=== PATIENT | female | born 1990 | race American Indian/Alaskan Native ===

== ENCOUNTER 2016-09-03 14:41 | Emergency (ER) | payer SELFPAY ==
[2016-09-03 15:31] VITALS: BP 121/78
[2016-09-03] MEDS ORDERED: NACL 0.9% 1000 ML 1,000 ML IV ONE (18:07)
--- NOTE | 2016-09-03 18:14 | Emergency Department Report ---
ED General Adult HPI - General Chief complaint: Medical Clearance Stated complaint: HANDS/LEGS GOING NUMB Time Seen by Provider: 09/03/16 17:51 Source: patient Mode of arrival: Ambulatory Limitations: No Limitations - History of Present Illness Initial comments: PT c/o her hands and legs intermittently going numb x 1 month. PT states she will have episodes of numbness daily and states it will last for a few seconds. On some days, she has multiple episodes. 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 PT denies facial numbness or paralysis. PT unsure when her lmp was. PT states it was sometime last year and when she missed her cycle, she took a test and it was negative. PT states she currently has an IUD. PT is laying on her left side with her left arm bent under her head and pt states, "My arm just went numb" Complaint: numbness Onset/Timin -: Gradual, month(s) Location: left, right, upper extremity, lower extremity Severity scale (0 -10): 7 Quality: other (painful numbness ) Consistency: intermittent Improves with: other (at times, repositioning ) Worsens with: other (working ) Associated Symptoms: denies: chest pain, fever/chills, nausea/vomiting Treatments Prior to Arrival: other (drinking ensure and beet juice ) - Related Data Allergies Allergy/AdvReac Type Severity Reaction Status Date / Time No Known Allergies Allergy Unverified 09/03/16 15:32 ED Review of Systems ROS: Stated complaint: HANDS/LEGS GOING NUMB Other details as noted in HPI Comment: All other systems reviewed and negative Constitutional: denies: chills, fever Eyes: denies: vision change ENT: denies: ear pain, throat pain, congestion Respiratory: denies: cough, shortness of breath Cardiovascular: denies: chest pain Endocrine: increased urine. denies: increased thirst Gastrointestinal: nausea. denies: abdominal pain, vomiting Genitourinary: frequency, abnormal menses. denies: dysuria, discharge Musculoskeletal: back pain (at times, she will have an ache ) Neurological: numbness. denies: abnormal gait ED Past Medical Hx - Past Medical History Previous Medical History?: Yes Hx Hypertension: Yes (DURING PREG) - Surgical History Additional Surgical History: C SECTION - Social History Smoking Status: Current Every Day Smoker Substance Use Type: None ED Physical Exam - General Limitations: No Limitations General appearance: alert, in no apparent distress - Head Head exam: Present: atraumatic, normocephalic, normal inspection - Eye Eye exam: Present: normal appearance, PERRL, EOMI. Absent: conjunctival injection - ENT ENT exam: Present: normal exam, normal orophraynx, mucous membranes moist, TM's normal bilaterally, normal external ear exam - Neck Neck exam: Present: normal inspection, full ROM. Absent: tenderness, meningismus - Respiratory Respiratory exam: Present: normal lung sounds bilaterally. Absent: respiratory distress, wheezes - Cardiovascular Cardiovascular Exam: Present: regular rate, normal rhythm, normal heart sounds - GI/Abdominal GI/Abdominal exam: Present: soft. Absent: tenderness - Extremities Exam Extremities exam: Present: normal inspection, full ROM, normal capillary refill. Absent: tenderness, pedal edema, joint swelling, calf tenderness - Back Exam Back exam: Present: normal inspection, full ROM. Absent: tenderness, CVA tenderness (R), CVA tenderness (L), muscle spasm, paraspinal tenderness, vertebral tenderness - Neurological Exam Neurological exam: Present: alert, oriented X3, CN II-XII intact, normal gait - Psychiatric Psychiatric exam: Present: flat affect - Skin Skin exam: Present: warm, dry, intact, normal color ED Course Vital Signs 09/03/16 15:26 Temperature 98.7 F Pulse Rate 97 H Blood Pressure 121/78 - Reevaluation(s) Reevaluation #1: 09/03/16 18:17 PT aware of plan of care. Reevaluation #2: 09/03/16 21:05 PT aware of lab results and plan of care. PT asking if we did an Aids test. PT states she does not think that is what she has but she would like to know. PT aware she will need to follow up with PCP or health department for HIV testing. PT verbalizes understanding. ED Medical Decision Making - Lab Data Result diagrams: 09/03/16 18:25 09/03/16 19:26 Lab Results 09/03/16 09/03/16 09/03/16 Range/Units 18:10 18:10 18:25 WBC 6.9 (4.5-11.0) K/mm3 RBC 4.44 (3.65-5.03) M/mm3 Hgb 12.8 (10.1-14.3) gm/dl Hct 38.9 (30.3-42.9) % MCV 88 (79-97) fl MCH 29 (28-32) pg MCHC 33 (30-34) % RDW 12.9 L (13.2-15.2) % Plt Count 232 (140-440) K/mm3 Lymph % (Auto) 25.5 (13.4-35.0) % Hooker % (Auto) 12.4 H (0.0-7.3) % Eos % (Auto) 8.4 H (0.0-4.3) % Baso % (Auto) 0.5 (0.0-1.8) % Lymph # 1.8 (1.2-5.4) K/mm3 Hooker # 0.9 H (0.0-0.8) K/mm3 Eos # 0.6 H (0.0-0.4) K/mm3 Baso # 0.0 (0.0-0.1) K/mm3 Seg Neutrophils % 53.2 (40.0-70.0) % Seg Neutrophils # 3.7 (1.8-7.7) K/mm3 Sodium Potassium Chloride Carbon Dioxide Anion Gap BUN Creatinine Estimated GFR BUN/Creatinine Ratio Glucose Calcium Total Bilirubin AST ALT Alkaline Phosphatase Total Protein Albumin Albumin/Globulin Ratio TSH (0.270-4.200) mlU/mL Urine Color Yellow (Yellow) Urine Turbidity Slightly-cloudy (Clear) Urine pH 5.0 (5.0-7.0) Ur Specific [place] 1.013 (1.003-1.030) Urine Protein <15 mg/dl (Negative) mg/dL Urine Glucose (UA) Neg (Negative) mg/dL Urine Ketones Neg (Negative) mg/dL Urine Blood Sm (Negative) Urine Nitrite Neg (Negative) Urine Bilirubin Neg (Negative) Urine Urobilinogen 4.0 (<2.0) mg/dL Ur Leukocyte Esterase Tr (Negative) Urine WBC (Auto) 9.0 H (0.0-6.0) /HPF Urine RBC (Auto) 4.0 (0.0-6.0) /HPF U Epithel Cells (Auto) 14.0 H (0-13.0) /HPF Urine Bacteria (Auto) 1+ (Negative) /HPF Urine Mucus Few /HPF Urine HCG, Qual Negative (Negative) Urine Opiates Screen Presumptive negative Urine Methadone Screen Presumptive negative Ur Barbiturates Screen Presumptive negative Ur Phencyclidine Scrn Presumptive negative Ur Amphetamines Screen Presumptive negative U Benzodiazepines Scrn Presumptive negative Urine Cocaine Screen Presumptive negative U Marijuana (THC) Screen Presumptive positive Drugs of Abuse Note Disclamer 09/03/16 09/03/16 09/03/16 Range/Units 18:25 18:25 19:26 WBC (4.5-11.0) K/mm3 RBC (3.65-5.03) M/mm3 Hgb (10.1-14.3) gm/dl Hct (30.3-42.9) % MCV (79-97) fl MCH (28-32) pg MCHC (30-34) % RDW (13.2-15.2) % Plt Count (140-440) K/mm3 Lymph % (Auto) (13.4-35.0) % Hooker % (Auto) (0.0-7.3) % Eos % (Auto) (0.0-4.3) % Baso % (Auto) (0.0-1.8) % Lymph # (1.2-5.4) K/mm3 Hooker # (0.0-0.8) K/mm3 Eos # (0.0-0.4) K/mm3 Baso # (0.0-0.1) K/mm3 Seg Neutrophils % (40.0-70.0) % Seg Neutrophils # (1.8-7.7) K/mm3 Sodium TNR 139 Potassium TNR 3.5 L Chloride TNR 106.3 Carbon Dioxide TNR 21 L Anion Gap TNR 15 BUN TNR 9 Creatinine TNR 0.6 L Estimated GFR TNR > 60 BUN/Creatinine Ratio TNR 15.00 Glucose TNR 89 Calcium TNR 8.4 Total Bilirubin TNR 0.2 AST TNR 19 ALT TNR 21 Alkaline Phosphatase TNR 69 Total Protein TNR 6.4 Albumin TNR 3.5 L Albumin/Globulin Ratio TNR 1.2 TSH 1.010 (0.270-4.200) mlU/mL Urine Color (Yellow) Urine Turbidity (Clear) Urine pH (5.0-7.0) Ur Specific [place] (1.003-1.030) Urine Protein (Negative) mg/dL Urine Glucose (UA) (Negative) mg/dL Urine Ketones (Negative) mg/dL Urine Blood (Negative) Urine Nitrite (Negative) Urine Bilirubin (Negative) Urine Urobilinogen (<2.0) mg/dL Ur Leukocyte Esterase (Negative) Urine WBC (Auto) (0.0-6.0) /HPF Urine RBC (Auto) (0.0-6.0) /HPF U Epithel Cells (Auto) (0-13.0) /HPF Urine Bacteria (Auto) (Negative) /HPF Urine Mucus /HPF Urine HCG, Qual (Negative) Urine Opiates Screen Urine Methadone Screen Ur Barbiturates Screen Ur Phencyclidine Scrn Ur Amphetamines Screen U Benzodiazepines Scrn Urine Cocaine Screen U Marijuana (THC) Screen Drugs of Abuse Note - Differential Diagnosis hypothroidism, uti, , new onset dm Critical care attestation.: If time is entered above; I have spent that time in minutes in the direct care of this critically ill patient, excluding procedure time. ED Disposition Clinical Impression: Numbness and tingling in both hands, Numbness and tingling of both legs, Hypokalemia, Marijuana use Disposition: DISCHARGED TO HOME OR SELFCARE Is pt being admited?: No Does the pt Need Aspirin: No Condition: Stable Instructions: Hypokalemia (ED), Paresthesia (ED) Referrals: PRIMARY CARE, [Primary Care Provider] - 3-5 Days FRAN WEATHERS MD [Staff Physician] - 3-5 Days [facility] [Outside] - 3-5 Days [facility] [Outside] - 3-5 Days [facility] [Outside] - 3-5 Days Forms: Work/School Release Form(ED) Time of Disposition: 21:09
[2016-09-03 18:32] LABS: Urine Drugs of Abuse Note Disclamer
[2016-09-03 18:45] LABS: Basophils % (Auto) 0.5 % (0.0-1.8); Eosinophils % (Auto) 8.4 % (0.0-4.3); Hematocrit 38.9 % (30.3-42.9); Hemoglobin 12.8 gm/dl (10.1-14.3); Mean Corpuscular HGB Conc 33 % (30-34); Mean Corpuscular Hemoglobin 29 pg (28-32); Mean Corpuscular Volume 88 fl (79-97); Platelet Count 232 K/mm3 (140-440); Red Blood Count 4.44 M/mm3 (3.65-5.03); Red Cell Distribution Width 12.9 % (13.2-15.2); White Blood Count 6.9 K/mm3 (4.5-11.0)
[2016-09-03 18:48] LABS: Bacteria,Urine 1+ /HPF (Negative); Bilirubin,Urine NEG (Negative); Blood,Urine SM (Negative); Ketones,Urine NEG (Negative); Leukocyte Esterase,Urine TR (Negative); Mucus,Urine FEW /HPF; Nitrite,Urine NEG (Negative); Protein,Urine <15 mg/dL mg/dL (Negative)
[2016-09-03 19:21] LABS: Chloride TNR mmol/L (98-107); Potassium TNR mmol/L (3.6-5.0); Sodium TNR mmol/L (137-145)
[2016-09-03 19:22] LABS: Anion Gap TNR mmol/L; BUN/Creatinine Ratio TNR; Blood Urea Nitrogen TNR mg/dL (7-17); Carbon Dioxide TNR mmol/L (22-30); Glucose TNR mg/dL (65-100)
[2016-09-03 19:23] LABS: Alanine Aminotransferase TNR units/L (7-56); Albumin TNR g/dL (3.9-5); Albumin/Globulin Ratio TNR %; Alkaline Phosphatase TNR units/L (35-129); Bilirubin,Total TNR mg/dL (0.1-1.2); Calcium TNR mg/dL (8.4-10.2); Total Protein TNR g/dL (6.3-8.2)
[2016-09-03 20:02] LABS: Alanine Aminotransferase 21 units/L (7-56); Albumin 3.5 g/dL (3.9-5); Albumin/Globulin Ratio 1.2 %; Alkaline Phosphatase 69 units/L (35-129); Anion Gap 15 mmol/L; Bilirubin,Total 0.2 mg/dL (0.1-1.2); Blood Urea Nitrogen 9 mg/dL (7-17); Calcium 8.4 mg/dL (8.4-10.2); Carbon Dioxide 21 mmol/L (22-30); Chloride 106.3 mmol/L (98-107); Glucose 89 mg/dL (65-100); Potassium 3.5 mmol/L (3.6-5.0); Sodium 139 mmol/L (137-145); Total Protein 6.4 g/dL (6.3-8.2)
[2016-09-03] MEDS ORDERED: K-DUR PO ONE (21:04)
== END 2016-09-03 22:50 | disposition home or self-care (01) ==
LOC: ED 14:41
DX: R20.0 Anesthesia of skin (principal); R20.2 Paresthesia of skin; E87.6 Hypokalemia; F12.10 Cannabis abuse, uncomplicated; I10 Essential (primary) hypertension; F17.200 Nicotine dependence, unspecified, uncomplicated
CPT/HCPCS: 36415; 80053; 80307; 81001; 81025; 84443; 85025; 96360; 99283; J7030

== ENCOUNTER 2017-05-12 12:33 | Emergency (ER) | payer OTHER ==
[2017-05-12 12:41] VITALS: BP 120/90
--- NOTE | 2017-05-12 13:10 | Emergency Department Report ---
Chief Complaint: Abdominal Pain Stated Complaint: ABDOMINAL PAIN Time Seen by Provider: 05/12/17 12:53 - HPI History of Present Illness: Patient is a 26-year-old [place] female who states that this more proximally a.m. she started having nausea vomiting diarrhea. Patient has vomited numerous times. Patient has some mild stomach cramping. Denies fever. Her daughter has the same. - ROS Review of Systems: Review of systems negative except for those L mismatch. - Exam Vital Signs: Vital Signs 05/12/17 12:37 Temperature 97.8 F Pulse Rate 71 Respiratory 18 Rate Blood Pressure 120/90 O2 Sat by Pulse 100 Oximetry Physical Exam: Focused physical exam: Patient is alert and oriented 3 in no acute distress. Heart tones are normal lungs clear to auscultation abdomen is soft and nontender. MSE screening note: Focused history and physical exam performed. Due to findings the following was ordered: ED Medical Decision Making - Medical Decision Making Patient given Zofran. Patient does not appear to be dehydrated at this time. Patient is no acute distress. Patient be discharged home ED Disposition for MSE Clinical Impression: Viral gastroenteritis Disposition: DC-01 TO HOME OR SELFCARE Is pt being admited?: No Does the pt Need Aspirin: No Condition: Fair Instructions: Gastroenteritis (ED) Prescriptions: Dicyclomine [Bentyl] 10 mg PO QID #10 capsule Diphenoxylate/Atropine [Lomotil] 1 tab PO Q4H PRN #7 tablet PRN Reason: Diarrhea Famotidine [Pepcid] 20 mg PO BID #14 tablet Ondansetron [Zofran Odt] 4 mg PO TID #10 tab.[email or web address] Referrals: WANDA TREVINO MD [Primary Care Provider] - 3-5 Days
[2017-05-12] MEDS ORDERED: NACL 0.9% 1000 ML 1,000 ML IV ONE (13:26)
[2017-05-12] MEDS ORDERED: TORADOL IV ONE (13:26)
[2017-05-12] MEDS ORDERED: ZOFRAN IV ONE (13:26)
[2017-05-12] MEDS ORDERED: BENTYL IM ONE (13:27)
[2017-05-12 13:51] LABS: Hematocrit 39.4 % (30.3-42.9); Hemoglobin 12.8 gm/dl (10.1-14.3); Mean Corpuscular HGB Conc 32 % (30-34); Mean Corpuscular Hemoglobin 27 pg (28-32); Mean Corpuscular Volume 84 fl (79-97); Platelet Count 262 K/mm3 (140-440); Red Blood Count 4.69 M/mm3 (3.65-5.03); Red Cell Distribution Width 13.3 % (13.2-15.2)
[2017-05-12 14:02] LABS: Anion Gap 17 mmol/L; BUN/Creatinine Ratio 23; Blood Urea Nitrogen 14 mg/dL (7-17); Calcium 9.7 mg/dL (8.4-10.2); Carbon Dioxide 22 mmol/L (22-30); Chloride 103.2 mmol/L (98-107); Glucose 93 mg/dL (65-100); Potassium 4.2 mmol/L (3.6-5.0); Sodium 138 mmol/L (137-145)
[2017-05-12 14:53] LABS: Basophils % (Manual) 0 % (0.0-1.8); Blastocytes % (Manual) 0 %; Diff Status Complete; RBC Morphology Normal
[2017-05-12 15:02] LABS: RBC,Urine < 1.0 /HPF (0.0-6.0)
[2017-05-12 15:08] LABS: Bacteria,Urine 1+ /HPF (Negative); Bilirubin,Urine NEG (Negative); Blood,Urine MOD (Negative); Ketones,Urine NEG (Negative); Leukocyte Esterase,Urine TR (Negative); Mucus,Urine FEW /HPF; Nitrite,Urine NEG (Negative); Protein,Urine <15 mg/dL mg/dL (Negative); Urobilinogen,Urine < 2.0 mg/dL (<2.0)
--- NOTE | 2017-05-12 15:11 | Emergency Department Report ---
ED Abdominal Pain HPI - General Chief Complaint: Abdominal Pain Stated Complaint: ABDOMINAL PAIN Time Seen by Provider: 05/12/17 12:53 Source: patient Mode of arrival: Wheelchair Limitations: No Limitations - History of Present Illness Initial Comments: pt is a a26 y/o aaf who presents for abdominal pain with n/v x 2 days last po intake yesterday pain described as 5/10 generalized aching exacerbated by eating relieved by nothing Complaint: abdominal pain Onset/Timin -: Sudden, days(s) Location: diffuse Radiation: none Migration to: no migration Severity scale (0 -10): 8 Quality: aching Consistency: constant Improves With: nothing Worsens With: eating Associated Symptoms: nausea, vomiting, chills. denies: constipation, dysuria, hematemesis, hematochezia, melena, hematuria, anorexia, syncope - Related Data LMP (females 10-50): 3 weeks Previous Rx's Medication Instructions Recorded Last Taken Type Ondansetron [Zofran TAB] 4 mg PO Q8HR PRN #20 tablet 05/12/17 Unknown Rx Tamsulosin HCl [Flomax] 0.4 mg PO DAILY #30 cap.er.24h 05/12/17 Unknown Rx traMADol [Ultram] 50 mg PO Q8HR PRN #30 tablet 05/12/17 Unknown Rx Allergies Allergy/AdvReac Type Severity Reaction Status Date / Time No Known Allergies Allergy Unverified 09/03/16 15:32 ED Review of Systems ROS: Stated complaint: ABDOMINAL PAIN Other details as noted in HPI Constitutional: denies: chills, fever Eyes: denies: eye pain, eye discharge, vision change ENT: denies: ear pain, throat pain Respiratory: denies: cough, shortness of breath, wheezing Cardiovascular: denies: chest pain, palpitations Endocrine: no symptoms reported Gastrointestinal: abdominal pain, nausea, vomiting. denies: diarrhea, constipation, hematemesis, melena, hematochezia Genitourinary: frequency. denies: urgency, dysuria, hematuria, discharge Musculoskeletal: denies: back pain, joint swelling, arthralgia Skin: denies: rash, lesions Neurological: denies: headache, weakness, paresthesias Psychiatric: denies: anxiety, depression Hematological/Lymphatic: denies: easy bleeding, easy bruising ED Past Medical Hx - Past Medical History Previous Medical History?: Yes Hx Hypertension: Yes (DURING PREG) - Surgical History Past Surgical History?: Yes Additional Surgical History: C SECTION - Social History Smoking Status: Never Smoker Substance Use Type: None - Medications Home Medications: Home Medications Medication Instructions Recorded Confirmed Last Taken Type Ondansetron [Zofran TAB] 4 mg PO Q8HR PRN #20 tablet 05/12/17 Unknown Rx Tamsulosin HCl [Flomax] 0.4 mg PO DAILY #30 cap.er.24h 05/12/17 Unknown Rx traMADol [Ultram] 50 mg PO Q8HR PRN #30 tablet 05/12/17 Unknown Rx ED Physical Exam - General Limitations: No Limitations General appearance: alert, in no apparent distress - Head Head exam: Present: atraumatic, normocephalic - Eye Eye exam: Present: normal appearance - ENT ENT exam: Present: normal exam - Neck Neck exam: Present: normal inspection, full ROM. Absent: lymphadenopathy, thyromegaly - Respiratory Respiratory exam: Present: normal lung sounds bilaterally. Absent: respiratory distress, wheezes, rhonchi, chest wall tenderness - Cardiovascular Cardiovascular Exam: Present: regular rate, normal rhythm, normal heart sounds. Absent: systolic murmur, diastolic murmur, rubs, gallop - GI/Abdominal GI/Abdominal exam: Present: soft, normal bowel sounds. Absent: distended, tenderness, guarding, rebound, rigid, organomegaly, mass, bruit - Rectal Rectal exam: Present: deferred - Extremities Exam Extremities exam: Present: normal inspection - Back Exam Back exam: Present: normal inspection - Neurological Exam Neurological exam: Present: alert, oriented X3, CN II-XII intact, normal gait - Psychiatric Psychiatric exam: Present: normal affect, normal mood - Skin Skin exam: Present: warm, dry, intact, normal color. Absent: rash ED Course Vital Signs 05/12/17 05/12/17 12:37 13:16 Temperature 97.8 F Pulse Rate 71 Respiratory 18 18 Rate Blood Pressure 120/90 O2 Sat by Pulse 100 100 Oximetry ED Medical Decision Making - Lab Data Result diagrams: 05/12/17 13:29 05/12/17 13:29 Laboratory Tests 05/12/17 05/12/17 05/12/17 13:29 13:29 14:50 WBC 13.0 H RBC 4.69 Hgb 12.8 Hct 39.4 MCV 84 MCH 27 L MCHC 32 RDW 13.3 Plt Count 262 Eos % (Auto) Property Management Coordinator Add Manual Diff Complete Total Counted 100 Seg Neuts % (Manual) 75.0 H Band Neutrophils % 0 Lymphocytes % (Manual) 11.0 L Reactive Lymphs % (Man) 0 Monocytes % (Manual) 2.0 Eosinophils % (Manual) 12.0 H Basophils % (Manual) 0 Metamyelocytes % 0 Myelocytes % 0 Promyelocytes % 0 Blast Cells % 0 Nucleated RBC % Not Reportable Seg Neutrophils # Man 9.8 H Band Neutrophils # 0.0 Lymphocytes # (Manual) 1.4 Abs React Lymphs (Man) 0.0 Monocytes # (Manual) 0.3 Eosinophils # (Manual) 1.6 H Basophils # (Manual) 0.0 Metamyelocytes # 0.0 Myelocytes # 0.0 Promyelocytes # 0.0 Blast Cells # 0.0 WBC Morphology Not Reportable Hypersegmented Neuts Not Reportable Hyposegmented Neuts Not Reportable Hypogranular Neuts Not Reportable Smudge Cells Not Reportable Toxic Granulation Not Reportable Toxic Vacuolation Not Reportable Dohle Bodies Not Reportable Pelger-Huet Anomaly Not Reportable Reginaldo Rods Not Reportable Platelet Estimate Appears normal Clumped Platelets Not Reportable Plt Clumps, EDTA Not Reportable Large Platelets Not Reportable Giant Platelets Not Reportable Platelet Satelliting Not Reportable Plt Morphology Comment Not Reportable RBC Morphology Normal Dimorphic RBCs Not Reportable Polychromasia Not Reportable Hypochromasia Not Reportable Poikilocytosis Not Reportable Anisocytosis Not Reportable Microcytosis Not Reportable Macrocytosis Not Reportable Spherocytes Not Reportable Pappenheimer Bodies Not Reportable Sickle Cells Not Reportable Target Cells Not Reportable Tear Drop Cells Not Reportable Ovalocytes Not Reportable Helmet Cells Not Reportable Vega-[place] Bodies Not Reportable [place] Rings Not Reportable Linwood Cells Not Reportable Bite Cells Not Reportable Crenated Cell Not Reportable Elliptocytes Not Reportable Acanthocytes (Spur) Not Reportable Rouleaux Not Reportable Hemoglobin C Crystals Not Reportable Schistocytes Not Reportable Malaria parasites Not Reportable Bebeto Bodies Not Reportable Hem Pathologist Commnt No Sodium 138 Potassium 4.2 Chloride 103.2 Carbon Dioxide 22 Anion Gap 17 BUN 14 Creatinine 0.6 L Estimated GFR > 60 BUN/Creatinine Ratio 23 Glucose 93 Calcium 9.7 Urine Color Yellow Urine Turbidity Clear Urine pH 5.0 Ur Specific Beatrice 1.014 Urine Protein <15 mg/dl Urine Glucose (UA) Neg Urine Ketones Neg Urine Blood Mod Urine Nitrite Neg Ur Reducing Substances Not Reportable Urine Bilirubin Neg Urine Ictotest Not Reportable Urine Urobilinogen < 2.0 Ur Leukocyte Esterase Tr Urine WBC (Auto) 4.0 Urine RBC (Auto) < 1.0 U Epithel Cells (Auto) 3.0 Urine Bacteria (Auto) 1+ Urine Mucus Few Urine HCG, Qual Negative - Radiology Data Radiology results: report reviewed, image reviewed - Medical Decision Making pt is a a26 y/o aaf who presents for abdominal pain with n/v x 2 days last po intake yesterday pain described as 5/10 generalized aching exacerbated by eating relieved by nothing exam: abd round b/s x all 4 qds, no rebound no bruit no fluid shift no signs, labs: CMP: normal CBC: normal UA: normalCT Abd/ pelvis nonobstrucing calculi left, 1518: pt symptoms are improved pain decreased to 2/10 no n/v and tolerating po intake at this time, pt will follow up with urology in 2-3 days , flomax, ultram , pt for d/c to self in stable condition at this time. pt verbalized agreement and understanding of discharge plan. Critical care attestation.: If time is entered above; I have spent that time in minutes in the direct care of this critically ill patient, excluding procedure time. ED Disposition Clinical Impression: Renal stones Disposition: TO HOME OR SELFCARE Is pt being admited?: No Does the pt Need Aspirin: No Condition: Good Prescriptions: Ondansetron [Zofran TAB] 4 mg PO Q8HR PRN #20 tablet PRN Reason: Nausea Tamsulosin HCl [Flomax] 0.4 mg PO DAILY #30 cap.er.24h traMADol [Ultram] 50 mg PO Q8HR PRN #30 tablet PRN Reason: Pain Referrals: WANDA TREVINO MD [Primary Care Provider] - 3-5 Days RANJITH VILLARREAL MD [Staff Physician] - 3-5 Days Forms: Work/School Release Form(ED) Time of Disposition: 18:06
--- NOTE | 2017-05-12 17:40 | Cat Scan Report ---
FINAL REPORT EXAM: CT ABDOMEN PELVIS WO CON HISTORY: Abdominal Pain TECHNIQUE: CT abdomen and pelvis without contrast PRIORS: None. FINDINGS: No acute abnormality identified in the lung bases. No focal abnormality identified within the liver parenchyma. The spleen demonstrates normal size and attenuation. No pancreatic abnormalities seen. There is punctate nonobstructing lower pole left renal calculus. . No ureteral calculus identified. Hypodensity at the lower pole the right kidney most likely reflects a cyst. The adrenal glands are unremarkable. Abdominal aorta is normal in caliber. No pathologically enlarged lymph nodes are identified. No signs of free fluid or free air No evidence of small bowel dilatation. No pericolonic inflammatory changes are observed. The appendix is identified and is unremarkable. An adjustment there is an IUD present within the uterus. Urinary bladder is unremarkable. IMPRESSION: Nonobstructing lower pole left renal calculus IUD within the uterus No acute findings
== END 2017-05-12 18:27 | disposition home or self-care (01) ==
LOC: ED 12:33
DX: N20.0 Calculus of kidney (principal)
CPT/HCPCS: 36415; 74176; 80048; 81001; 81025; 85007; 85025; 96361; 96372; 96374; 96375; 99283; J0500; J1885; J2405; J7030

== ENCOUNTER 2017-12-24 15:10 | Emergency (ER) | payer OTHER ==
[2017-12-24 15:21] VITALS: BP 144/85
--- NOTE | 2017-12-24 17:35 | Emergency Department Report ---
ED Shortness of Breath HPI - General Chief Complaint: Dyspnea/Respdistress Stated Complaint: CHEST PAIN Time Seen by Provider: 12/24/17 17:18 Source: patient Mode of arrival: Ambulatory Limitations: No Limitations - History of Present Illness Initial Comments: Patient is 27 years old female with no significant past medical history. Patient had presented to the ER complaining of cough, productive of greenish sputum associated with shortness of breath and wheezing. Patient denied any fever, chills, nausea or vomiting. MD Complaint: shortness of breath, cough Context: recent URI Associated Symptoms: cough - Related Data Previous Rx's Medication Instructions Recorded Last Taken Type Ondansetron [Zofran TAB] 4 mg PO Q8HR PRN #20 tablet 05/12/17 Unknown Rx Tamsulosin HCl [Flomax] 0.4 mg PO DAILY #30 cap.er.24h 05/12/17 Unknown Rx traMADol [Ultram] 50 mg PO Q8HR PRN #30 tablet 05/12/17 Unknown Rx Allergies Allergy/AdvReac Type Severity Reaction Status Date / Time No Known Allergies Allergy Unverified 09/03/16 15:32 ED Review of Systems ROS: Stated complaint: CHEST PAIN Other details as noted in HPI Comment: All other systems reviewed and negative Constitutional: denies: chills, fever Respiratory: cough, shortness of breath, wheezing. denies: orthopnea, SOB with exertion, SOB at rest Cardiovascular: denies: chest pain, palpitations, dyspnea on exertion, orthopnea Gastrointestinal: denies: abdominal pain, nausea, vomiting, diarrhea, constipation, hematemesis, melena, hematochezia Musculoskeletal: denies: back pain Neurological: denies: headache, weakness, numbness, paresthesias, confusion ED Past Medical Hx - Past Medical History Previous Medical History?: Yes Hx Hypertension: Yes (DURING PREG) Additional medical history: heart murmur - Surgical History Past Surgical History?: Yes Additional Surgical History: C SECTION - Social History Smoking Status: Current Every Day Smoker Substance Use Type: Alcohol, Marijuana - Medications Home Medications: Home Medications Medication Instructions Recorded Confirmed Last Taken Type Ondansetron [Zofran TAB] 4 mg PO Q8HR PRN #20 tablet 05/12/17 Unknown Rx Tamsulosin HCl [Flomax] 0.4 mg PO DAILY #30 cap.er.24h 05/12/17 Unknown Rx traMADol [Ultram] 50 mg PO Q8HR PRN #30 tablet 05/12/17 Unknown Rx ED Physical Exam - General Limitations: No Limitations General appearance: alert, in no apparent distress - Head Head exam: Present: atraumatic, normocephalic, normal inspection - ENT ENT exam: Present: normal exam, normal orophraynx, mucous membranes moist - Neck Neck exam: Present: normal inspection, full ROM. Absent: tenderness, meningismus, lymphadenopathy, thyromegaly - Respiratory Respiratory exam: Present: wheezes, rales. Absent: rhonchi, stridor, chest wall tenderness, accessory muscle use, decreased breath sounds, prolonged expiratory - Cardiovascular Cardiovascular Exam: Present: regular rate, normal rhythm, normal heart sounds - GI/Abdominal GI/Abdominal exam: Present: soft, normal bowel sounds. Absent: distended, tenderness, guarding, rebound, rigid, diminished bowel sounds, organomegaly, mass, bruit, pulsatile mass, hernia - Extremities Exam Extremities exam: Present: normal inspection, full ROM, normal capillary refill. Absent: tenderness, pedal edema, joint swelling, calf tenderness - Back Exam Back exam: Present: normal inspection, full ROM. Absent: CVA tenderness (R), CVA tenderness (L), muscle spasm - Neurological Exam Neurological exam: Present: alert, oriented X3, CN II-XII intact, normal gait, reflexes normal - Skin Skin exam: Present: warm, intact, normal color ED Course Vital Signs 12/24/17 15:14 Temperature 97.7 F Pulse Rate 89 Respiratory 22 Rate Blood Pressure 144/85 O2 Sat by Pulse 98 Oximetry Critical care attestation.: If time is entered above; I have spent that time in minutes in the direct care of this critically ill patient, excluding procedure time. ED Disposition Clinical Impression: Acute bronchitis Disposition: DC-01 TO HOME OR SELFCARE Is pt being admited?: No Condition: Stable Instructions: Acute Bronchitis (ED) Referrals: PRIMARY CARE, [Primary Care Provider] - 3-5 Days
== END 2017-12-24 17:47 | disposition home or self-care (01) ==
LOC: ED 15:10
DX: J20.9 Acute bronchitis, unspecified (principal); F17.200 Nicotine dependence, unspecified, uncomplicated; F12.10 Cannabis abuse, uncomplicated
CPT/HCPCS: 93005; 93010; 96372; 99282; J2930

== ENCOUNTER 2018-03-16 10:51 | Emergency (ER) | payer OTHER ==
[2018-03-16 11:13] VITALS: BP 136/88
== END 2018-03-16 16:29 | disposition left against medical advice (07) ==
LOC: ED 10:51
DX: R06.00 Dyspnea, unspecified (principal); R06.2 Wheezing; Z53.21 Procedure and treatment not carried out due to patient leaving prior to being seen by health care provider

== ENCOUNTER 2018-09-17 14:39 | Emergency (ER) | payer OTHER ==
[2018-09-17] MEDS ORDERED: DUONEB *Not for PRN Use IH ONE ×2 (15:08→18:31)
[2018-09-17] MEDS ORDERED: SOLU-Medrol IM ONE (15:08)
[2018-09-17] MEDS ORDERED: ROBITUSSIN PO ONE (15:08)
--- NOTE | 2018-09-17 15:09 | Emergency Department Report ---
Blank Doc - Documentation Documentation: 27 y o f with hx of asthma presents with dry intermittent coughing worsening x 1 week, ran out of medication at home wheezing cp with coughing duonebs, steroids,cxr acc eval
[2018-09-17 15:14] VITALS: BP 131/89
--- NOTE | 2018-09-17 16:19 | XRay Report ---
PROCEDURE: XR CHEST ROUTINE 2V TECHNIQUE: PA and lateral chest radiographs were obtained. HISTORY: cp/cough COMPARISONS: None. FINDINGS: Heart: Normal. Mediastinum/Vessels: Normal. Lungs/Pleural space: No infiltrate, effusion, or pneumothorax. Bony thorax: No acute osseous abnormality. IMPRESSION: No pulmonary infiltrates are identified. This document is electronically signed by Mercedes Witt MD., September 17 2018 04:17:13 PM ET
[2018-09-17] MEDS ORDERED: SOLU-Medrol ONE (18:31)
[2018-09-17] MEDS ORDERED: ROBITUSSIN ONE (18:31)
--- NOTE | 2018-09-17 19:15 | Emergency Department Report ---
ED Shortness of Breath HPI - General Chief Complaint: Dyspnea/Respdistress Stated Complaint: CHEST PAIN/ADDIS/WHEEZING Time Seen by Provider: 09/17/18 15:05 Source: patient Mode of arrival: Ambulatory Limitations: No Limitations - History of Present Illness Initial Comments: This is a 27-year-old female nontoxic, well nourished in appearance, no acute signs of distress presents to the ED with c/o of acute on chronic asthma exacerbation. Patient stated she is out of her albuterol inhaler 1 month. Patient stated that she has seasonal allergies to pollen and has been outside that might have triggered her symptoms. Patient stated has some dry cough. Patient denies any sick contact. Patient denies any recent travels, long car, recent hospital stays. Patient denies any calf pain or calf tenderness. Patient denies any chest pain, short of breath, fever, chills, nausea, vomiting, hemoptysis, numbness, tingling, headache or stiff neck. Past medical history includes asthma. MD Complaint: shortness of breath, cough, "asthma attack" -: days(s) Pain Scale: 0 Improves With: nothing Worsens With: nothing Associated Symptoms: cough - Related Data Previous Rx's Medication Instructions Recorded Last Taken Type Ondansetron [Zofran TAB] 4 mg PO Q8HR PRN #20 tablet 05/12/17 Unknown Rx Tamsulosin HCl [Flomax] 0.4 mg PO DAILY #30 cap.er.24h 05/12/17 Unknown Rx traMADol [Ultram] 50 mg PO Q8HR PRN #30 tablet 05/12/17 Unknown Rx ALBUTEROL Inhaler (OR & NICU) 2 puff IH QID PRN #1 inhalation 12/24/17 Unknown Rx [ProAir HFA Inhaler] Amoxicillin [Amoxicillin TAB] 875 mg PO BID #14 tablet 12/24/17 Unknown Rx guaiFENesin/CODEINE [Robitussin AC] 10 ml PO TID PRN #100 ml 12/24/17 Unknown Rx ALBUTEROL Inhaler(NF) [VENTOLIN 2 puff IH Q4-6H PRN #1 inha 09/17/18 Unknown Rx Inhaler(NF)] Prednisone [predniSONE 10 mg 10 mg PO .TAPER #1 tab.ds.pk 09/17/18 Unknown Rx (6-Day Pack, 21 Tabs)] Allergies Allergy/AdvReac Type Severity Reaction Status Date / Time No Known Allergies Allergy Verified 03/16/18 11:10 ED Review of Systems ROS: Stated complaint: CHEST PAIN/ADDIS/WHEEZING Other details as noted in HPI Constitutional: denies: chills, fever Eyes: denies: eye pain, eye discharge, vision change ENT: denies: ear pain, throat pain Respiratory: cough, shortness of breath, wheezing Cardiovascular: denies: chest pain, palpitations Endocrine: no symptoms reported Gastrointestinal: denies: abdominal pain, nausea, diarrhea Genitourinary: denies: urgency, dysuria, discharge Musculoskeletal: denies: back pain, joint swelling, arthralgia Skin: denies: rash, lesions Neurological: denies: headache, weakness, paresthesias Psychiatric: denies: anxiety, depression Hematological/Lymphatic: denies: easy bleeding, easy bruising ED Past Medical Hx - Past Medical History Hx Hypertension: Yes (DURING PREG) Hx Asthma: Yes Additional medical history: heart murmur - Surgical History Additional Surgical History: C SECTION x2 - Social History Smoking Status: Current Every Day Smoker Substance Use Type: Alcohol, Marijuana - Medications Home Medications: Home Medications Medication Instructions Recorded Confirmed Last Taken Type Ondansetron [Zofran TAB] 4 mg PO Q8HR PRN #20 tablet 05/12/17 Unknown Rx Tamsulosin HCl [Flomax] 0.4 mg PO DAILY #30 cap.er.24h 05/12/17 Unknown Rx traMADol [Ultram] 50 mg PO Q8HR PRN #30 tablet 05/12/17 Unknown Rx ALBUTEROL Inhaler (OR & NICU) 2 puff IH QID PRN #1 inhalation 12/24/17 Unknown Rx [ProAir HFA Inhaler] Amoxicillin [Amoxicillin TAB] 875 mg PO BID #14 tablet 12/24/17 Unknown Rx guaiFENesin/CODEINE [Robitussin AC] 10 ml PO TID PRN #100 ml 12/24/17 Unknown Rx ALBUTEROL Inhaler(NF) [VENTOLIN 2 puff IH Q4-6H PRN #1 inha 09/17/18 Unknown Rx Inhaler(NF)] Prednisone [predniSONE 10 mg 10 mg PO .TAPER #1 tab.ds.pk 09/17/18 Unknown Rx (6-Day Pack, 21 Tabs)] ED Physical Exam - General Limitations: No Limitations General appearance: alert, in no apparent distress - Head Head exam: Present: atraumatic, normocephalic - Neck Neck exam: Present: normal inspection, full ROM - Respiratory Respiratory exam: Present: normal lung sounds bilaterally, wheezes (bilateral upper and lower lobes). Absent: respiratory distress, rales, rhonchi, stridor, chest wall tenderness, accessory muscle use, decreased breath sounds, prolonged expiratory - Cardiovascular Cardiovascular Exam: Present: regular rate, normal rhythm, normal heart sounds. Absent: bradycardia, tachycardia, irregular rhythm, systolic murmur, diastolic murmur, rubs, gallop - Back Exam Back exam: Present: normal inspection, full ROM - Neurological Exam Neurological exam: Present: alert, oriented X3 - Psychiatric Psychiatric exam: Present: normal affect, normal mood - Skin Skin exam: Present: warm, dry, intact, normal color. Absent: rash ED Course Vital Signs 09/17/18 09/17/18 15:08 18:38 Temperature 98 F Pulse Rate 87 Respiratory 22 22 Rate Blood Pressure 131/89 O2 Sat by Pulse 100 Oximetry - Reevaluation(s) Reevaluation #1: 09/17/18 19:16 Patient is speaking in full sentences with no signs of distress noted. ED Medical Decision Making - Medical Decision Making This is a 27-year-old female that presents with asthma exacerbation. Patient is stable and was examined by me. Chest x-ray has been obtained and dictated by the radiologist within normal limits. Patient is notified of the x-ray report with no questions noted by the patient. Patient did receive DuoNeb and steroids in the ED which patient the symptoms has resolved and subsided. Posttreatment and there is no wheezing upon auscultation. Patient is discharged with albuterol and prednisone. Patient was referred to Follow-up with a primary care doctor in 3-5 days or if symptoms worsen and continue return to emergency room as soon as possible. At time of discharge, the patient does not seem toxic or ill in appearance. No acute signs of distress noted. Patient agrees to discharge treatment plan of care. No further questions noted by the patient. This chart is dictated with using [employer] Critical care attestation.: If time is entered above; I have spent that time in minutes in the direct care of this critically ill patient, excluding procedure time. ED Disposition Clinical Impression: Asthma exacerbation Qualifiers: Asthma severity: mild Asthma persistence: intermittent Qualified Code(s): J45.21 - Mild intermittent asthma with (acute) exacerbation Disposition: DC-01 TO HOME OR SELFCARE Is pt being admited?: No Does the pt Need Aspirin: No Condition: Stable Instructions: Asthma (ED) Additional Instructions: Follow-up with a primary care doctor in 3-5 days or if symptoms worsen and continue return to emergency room as soon as possible. Prescriptions: Prednisone [predniSONE 10 mg (6-Day Pack, 21 Tabs)] 10 mg PO .TAPER #1 tab.ds.pk ALBUTEROL Inhaler(NF) [VENTOLIN Inhaler(NF)] 2 puff IH Q4-6H PRN #1 inha PRN Reason: Wheezing Referrals: TRE MARTINEZ MD [Primary Care Provider] - 3-5 Days PRIMARY CARE, [Referring] - 3-5 Days AMIRA GRANT MD [Staff Physician] - 3-5 Days [facility] [Outside] - 3-5 Days [facility] [Outside] - 3-5 Days Forms: Work/School Release Form(ED)
== END 2018-09-17 19:25 | disposition home or self-care (01) ==
LOC: ED 14:39
DX: J45.901 Unspecified asthma with (acute) exacerbation (principal); I10 Essential (primary) hypertension; F17.200 Nicotine dependence, unspecified, uncomplicated; F12.10 Cannabis abuse, uncomplicated
CPT/HCPCS: 71046; 94640; 96372; 99283; J2930

== ENCOUNTER 2019-06-04 20:28 | Emergency (ER) | payer OTHER ==
[2019-06-04 21:56] VITALS: BP 152/93
[2019-06-04] MEDS ORDERED: IBUPROFEN 800 MG TAB PO ONE (23:22)
[2019-06-04] MEDS ORDERED: ALBUTEROL 2.5 MG/3 ML NEBU IH ONE (23:22)
[2019-06-04] MEDS ORDERED: dexAMETHasone 20 MG/5 ML VIAL IM ONE (23:22)
--- NOTE | 2019-06-04 23:41 | Emergency Department Report ---
- General Chief Complaint: Upper Respiratory Infection Stated Complaint: DIFF BREATHING Time Seen by Provider: 06/04/19 23:06 Source: patient Mode of arrival: Ambulatory Limitations: No Limitations - History of Present Illness Initial Comments: Ms. Etienne is a 28-year-old ETHIOPIAN female with a history of bronchitis who presents for cough wheezing 4 days. Patient states symptoms started with weather change. There is no fevers or chills no chest pain. Symptoms are exacerbated abdominal exposure. Symptoms are relieved by rest. MD Complaint: cough, sore throat, rhinorrhea, nasal congestion, other (wheezing ) Onset/Timin -: days(s) Severity: moderate Severity scale (0 -10): 4 Quality: aching Consistency: constant Improves With: nothing Worsens With: activity Context: sick contacts Associated Symptoms: rhinorrhea, nasal congestion, sore throat, cough, shortness of breath - Related Data Previous Rx's Medication Instructions Recorded Last Taken Type Ondansetron [Zofran TAB] 4 mg PO Q8HR PRN #20 tablet 05/12/17 Unknown Rx Tamsulosin HCl [Flomax] 0.4 mg PO DAILY #30 cap.er.24h 05/12/17 Unknown Rx traMADoL [Ultram] 50 mg PO Q8HR PRN #30 tablet 05/12/17 Unknown Rx Albuterol INH(or & Nicu Only) 2 puff IH QID PRN #1 inhalation 12/24/17 Unknown Rx [ProAir HFA Inhaler] Amoxicillin [Amoxicillin TAB] 875 mg PO BID #14 tablet 12/24/17 Unknown Rx guaiFENesin/CODEINE [Robitussin AC] 10 ml PO TID PRN #100 ml 12/24/17 Unknown Rx ALBUTEROL Inhaler(NF) [VENTOLIN 2 puff IH Q4-6H PRN #1 inha 09/17/18 Unknown Rx Inhaler(NF)] Prednisone [predniSONE 10 mg 10 mg PO .TAPER #1 tab.ds.pk 09/17/18 Unknown Rx (6-Day Pack, 21 Tabs)] Albuterol INH(or & Nicu Only) 2 puff IH QID PRN #8.5 gram 06/05/19 Unknown Rx [ProAir HFA Inhaler] Azithromycin [Zithromax Z-YESSICA] 250 mg PO DAILY #6 tab 06/05/19 Unknown Rx Benzonatate [Tessalon Perles] 100 mg PO Q8HR PRN #30 capsule 06/05/19 Unknown Rx Ibuprofen [Motrin 800 MG tab] 800 mg PO Q8HR PRN #30 tablet 06/05/19 Unknown Rx Allergies Allergy/AdvReac Type Severity Reaction Status Date / Time No Known Allergies Allergy Verified 03/16/18 11:10 ED Review of Systems ROS: Stated complaint: DIFF BREATHING Other details as noted in HPI Constitutional: denies: chills, fever Eyes: denies: eye pain, eye discharge, vision change ENT: ear pain, throat pain, congestion Respiratory: cough, shortness of breath, wheezing Cardiovascular: denies: chest pain, palpitations Endocrine: no symptoms reported Gastrointestinal: denies: abdominal pain, nausea, vomiting, diarrhea Genitourinary: denies: urgency, dysuria, discharge Musculoskeletal: denies: back pain Skin: denies: rash Neurological: denies: headache, weakness, paresthesias Psychiatric: denies: anxiety, depression Hematological/Lymphatic: denies: easy bleeding, easy bruising ED Past Medical Hx - Past Medical History Previous Medical History?: Yes Hx Hypertension: Yes (DURING PREG) Hx Asthma: Yes Additional medical history: heart murmur - Surgical History Past Surgical History?: Yes Additional Surgical History: C SECTION x2 - Social History Smoking Status: Never Smoker Substance Use Type: None - Medications Home Medications: Home Medications Medication Instructions Recorded Confirmed Last Taken Type Ondansetron [Zofran TAB] 4 mg PO Q8HR PRN #20 tablet 05/12/17 Unknown Rx Tamsulosin HCl [Flomax] 0.4 mg PO DAILY #30 cap.er.24h 05/12/17 Unknown Rx traMADoL [Ultram] 50 mg PO Q8HR PRN #30 tablet 05/12/17 Unknown Rx Albuterol INH(or & Nicu Only) 2 puff IH QID PRN #1 inhalation 12/24/17 Unknown Rx [ProAir HFA Inhaler] Amoxicillin [Amoxicillin TAB] 875 mg PO BID #14 tablet 12/24/17 Unknown Rx guaiFENesin/CODEINE [Robitussin AC] 10 ml PO TID PRN #100 ml 12/24/17 Unknown Rx ALBUTEROL Inhaler(NF) [VENTOLIN 2 puff IH Q4-6H PRN #1 inha 09/17/18 Unknown Rx Inhaler(NF)] Prednisone [predniSONE 10 mg 10 mg PO .TAPER #1 tab.ds.pk 09/17/18 Unknown Rx (6-Day Pack, 21 Tabs)] Albuterol INH(or & Nicu Only) 2 puff IH QID PRN #8.5 gram 06/05/19 Unknown Rx [ProAir HFA Inhaler] Azithromycin [Zithromax Z-YESSICA] 250 mg PO DAILY #6 tab 06/05/19 Unknown Rx Benzonatate [Tessalon Perles] 100 mg PO Q8HR PRN #30 capsule 06/05/19 Unknown Rx Ibuprofen [Motrin 800 MG tab] 800 mg PO Q8HR PRN #30 tablet 06/05/19 Unknown Rx ED Physical Exam - General Limitations: No Limitations General appearance: alert, in no apparent distress - Head Head exam: Present: atraumatic, normocephalic - Eye Eye exam: Present: normal appearance, PERRL Pupils: Present: normal accommodation - ENT ENT exam: Present: mucous membranes moist, TM's normal bilaterally, normal external ear exam - Expanded ENT Exam Expanded Throat exam: Positive: tonsillar erythema, tonsillomegaly, other (uvulal midline no swelling no exudate no lesions no stridor ). Negative: tonsillar exudate, R peritonsillar mass, L peritonsillar mass - Neck Neck exam: Present: normal inspection, full ROM. Absent: tenderness, lymphadenopathy - Respiratory Respiratory exam: Present: wheezes, chest wall tenderness (right lateral chest wall tenderness. ). Absent: respiratory distress, rales, rhonchi, stridor - Cardiovascular Cardiovascular Exam: Present: regular rate, normal rhythm, normal heart sounds. Absent: systolic murmur, diastolic murmur, rubs, gallop - GI/Abdominal GI/Abdominal exam: Present: soft, normal bowel sounds. Absent: distended, tenderness, bruit, hernia - Rectal Rectal exam: Present: deferred - Extremities Exam Extremities exam: Present: normal inspection, full ROM. Absent: tenderness - Back Exam Back exam: Present: normal inspection, full ROM. Absent: tenderness, rash noted - Neurological Exam Neurological exam: Present: alert, oriented X3, CN II-XII intact, normal gait - Psychiatric Psychiatric exam: Present: normal affect, normal mood - Skin Skin exam: Present: warm, dry, intact, normal color. Absent: rash ED Course Vital Signs 06/04/19 06/05/19 06/05/19 21:53 00:22 00:36 Temperature 97.9 F Pulse Rate 90 Pulse Rate [ 70 Bilateral] Respiratory 18 20 Rate Respiratory 24 Rate [Bilateral ] Blood Pressure 152/93 Blood Pressure 152/93 [Right] O2 Sat by Pulse 100 Oximetry ED Medical Decision Making - Radiology Data Radiology results: report reviewed, image reviewed Ordering Physician: DELONTE ORR NP Date of Service: 06/04/19 Procedure(s): XR chest routine 2V Accession Number(s): [id number] cc: DELONTE ORR NP Fluoro Time In Minutes: CHEST 2 VIEWS, 06/05/2019 12:16 AM INDICATION: Cough. Shortness of breath. COMPARISON: Chest radiograph, 09/17/2018 FINDINGS: Support devices: None Heart: The heart remains normal in size. Lungs/pleura: No focal airspace consolidation or significant pleural effusion is visualized. Additional findings: None IMPRESSION: 1. No evidence of acute cardiopulmonary process. Signer Name: Erin Julio MD Signed: 06/05/2019 12:32 AM Workstation Name: [id number] Transcribed By: EB Dictated By: Erin Julio MD Electronically Authenticated By: Erin Julio MD Signed Date/Time: 06/05/1931 DD/ TD/TT: - Medical Decision Making This is bronchitis plan: refill albuterol, Z-Yessica,ibuprofen, and Tessalon Pearles. follow up PCP in 2-3 days return to the ED should symptoms worsen. Patient verbalizes agreement and understanding of discharge plan. Patient DC'd home in stable condition at this time Critical care attestation.: If time is entered above; I have spent that time in minutes in the direct care of this critically ill patient, excluding procedure time. ED Disposition Clinical Impression: Bronchitis Disposition: DC-01 TO HOME OR SELFCARE Is pt being admited?: No Does the pt Need Aspirin: No Condition: Stable Instructions: Acute Bronchitis (ED) Prescriptions: Ibuprofen [Motrin 800 MG tab] 800 mg PO Q8HR PRN #30 tablet PRN Reason: pain Albuterol INH(or & Nicu Only) [ProAir HFA Inhaler] 2 puff IH QID PRN #8.5 gram PRN Reason: Shortness Of Breath Benzonatate [Tessalon Perles] 100 mg PO Q8HR PRN #30 capsule PRN Reason: Cough Azithromycin [Zithromax Z-YESSICA] 250 mg PO DAILY #6 tab Referrals: PRIMARY CARE, [Primary Care Provider] - 3-5 Days [facility] [Outside] - 3-5 Days Forms: Work/School Release Form(ED) Time of Disposition: 01:44
[2019-06-05] MEDS ORDERED: ALBUTEROL 2.5 MG/3 ML NEBU IH ONE (00:26)
[2019-06-05] MEDS ORDERED: IPRATROPIUM 0.02% NEBU 2.5 ML IH ONE ×2 (00:27→00:30)
--- NOTE | 2019-06-05 00:37 | XRay Report ---
CHEST 2 VIEWS, 06/05/2019 12:16 AM INDICATION: Cough. Shortness of breath. COMPARISON: Chest radiograph, 09/17/2018 FINDINGS: Support devices: None Heart: The heart remains normal in size. Lungs/pleura: No focal airspace consolidation or significant pleural effusion is visualized. Additional findings: None IMPRESSION: 1. No evidence of acute cardiopulmonary process. Signer Name: Erin Julio MD Signed: 06/05/2019 12:32 AM Workstation Name: [email or web address]
== END 2019-06-05 02:20 | disposition home or self-care (01) ==
LOC: ED 20:28
DX: J40 Bronchitis, not specified as acute or chronic (principal); I10 Essential (primary) hypertension; Z98.890 Other specified postprocedural states; Z79.1 Long term (current) use of non-steroidal anti-inflammatories (NSAID); Z79.2 Long term (current) use of antibiotics; Z79.899 Other long term (current) drug therapy
CPT/HCPCS: 71046; 94644; 96372; 99283; J1100

== ENCOUNTER 2019-08-03 00:12 | Emergency (ER) | payer SELFPAY ==
[2019-08-03] MEDS ORDERED: IPRATROPIUM/ALBUTEROL SULFATE 3 ML AMPUL.NEB IH ONE (00:56)
[2019-08-03] MEDS ORDERED: predniSONE 50 MG TAB PO STA (00:56)
--- NOTE | 2019-08-03 01:03 | XRay Report ---
CHEST 2 VIEWS INDICATION / CLINICAL INFORMATION: cough and nikki. COMPARISON: 06/05/2019 FINDINGS: SUPPORT DEVICES: None. HEART / MEDIASTINUM: No significant abnormality. LUNGS / PLEURA: No significant pulmonary or pleural abnormality. No pneumothorax. No evidence of pneu monia. ADDITIONAL FINDINGS: No significant additional findings. IMPRESSION: 1. No acute findings. No interval change. Signer Name: Christiana Overton MD Signed: 08/03/2019 12:59 AM Workstation Name: [id number]
[2019-08-03] MEDS ORDERED: ALBUTEROL 2.5 MG/3 ML NEBU IH ONE (02:42)
--- NOTE | 2019-08-03 02:51 | Emergency Department Report ---
ED Asthma HPI - General Chief Complaint: Adult Asthma Stated Complaint: COUGHING/WHEEZING Time Seen by Provider: 08/03/19 00:56 Source: patient Mode of arrival: Ambulatory Limitations: No Limitations - History of Present Illness MD Complaint: "asthma attack", shortness of breath, wheezing -: Gradual Asthma History: childhood onset Severity: moderate Context: other (Motrin around to catch the bus and developed some shortness of breath and wheezing did not have her inhaler so she came to the emergency department.) Associated Symptoms: none - Related Data Previous Rx's Medication Instructions Recorded Last Taken Type Ondansetron [Zofran TAB] 4 mg PO Q8HR PRN #20 tablet 05/12/17 Unknown Rx Tamsulosin HCl [Flomax] 0.4 mg PO DAILY #30 cap.er.24h 05/12/17 Unknown Rx traMADoL [Ultram] 50 mg PO Q8HR PRN #30 tablet 05/12/17 Unknown Rx Albuterol INH(or & Nicu Only) 2 puff IH QID PRN #1 inhalation 12/24/17 Unknown Rx [ProAir HFA Inhaler] Amoxicillin [Amoxicillin TAB] 875 mg PO BID #14 tablet 12/24/17 Unknown Rx guaiFENesin/CODEINE [Robitussin AC] 10 ml PO TID PRN #100 ml 12/24/17 Unknown Rx ALBUTEROL Inhaler(NF) [VENTOLIN 2 puff IH Q4-6H PRN #1 inha 09/17/18 Unknown Rx Inhaler(NF)] Prednisone [predniSONE 10 mg 10 mg PO .TAPER #1 tab.ds.pk 09/17/18 Unknown Rx (6-Day Pack, 21 Tabs)] Albuterol INH(or & Nicu Only) 2 puff IH QID PRN #8.5 gram 06/05/19 Unknown Rx [ProAir HFA Inhaler] Azithromycin [Zithromax Z-YESSICA] 250 mg PO DAILY #6 tab 06/05/19 Unknown Rx Benzonatate [Tessalon Perles] 100 mg PO Q8HR PRN #30 capsule 06/05/19 Unknown Rx Ibuprofen [Motrin 800 MG tab] 800 mg PO Q8HR PRN #30 tablet 06/05/19 Unknown Rx Albuterol INH(or & Nicu Only) 2 puff IH QID PRN #1 inhalation 08/03/19 Unknown Rx [ProAir HFA Inhaler] Montelukast [Singulair] 10 mg PO QPM #14 tablet 08/03/19 Unknown Rx predniSONE [Deltasone] 50 mg PO QDAY #5 tab 08/03/19 Unknown Rx Allergies Allergy/AdvReac Type Severity Reaction Status Date / Time No Known Allergies Allergy Verified 03/16/18 11:10 ED Review of Systems ROS: Stated complaint: COUGHING/WHEEZING Other details as noted in HPI Comment: All other systems reviewed and negative ED Past Medical Hx - Past Medical History Previous Medical History?: Yes Hx Hypertension: Yes (DURING PREG) Hx Asthma: Yes Additional medical history: heart murmur, Bronchitis - Surgical History Past Surgical History?: Yes Additional Surgical History: C SECTION x2 - Social History Smoking Status: Current Every Day Smoker Substance Use Type: Marijuana - Medications Home Medications: Home Medications Medication Instructions Recorded Confirmed Last Taken Type Ondansetron [Zofran TAB] 4 mg PO Q8HR PRN #20 tablet 05/12/17 Unknown Rx Tamsulosin HCl [Flomax] 0.4 mg PO DAILY #30 cap.er.24h 05/12/17 Unknown Rx traMADoL [Ultram] 50 mg PO Q8HR PRN #30 tablet 05/12/17 Unknown Rx Albuterol INH(or & Nicu Only) 2 puff IH QID PRN #1 inhalation 12/24/17 Unknown Rx [ProAir HFA Inhaler] Amoxicillin [Amoxicillin TAB] 875 mg PO BID #14 tablet 12/24/17 Unknown Rx guaiFENesin/CODEINE [Robitussin AC] 10 ml PO TID PRN #100 ml 12/24/17 Unknown Rx ALBUTEROL Inhaler(NF) [VENTOLIN 2 puff IH Q4-6H PRN #1 inha 09/17/18 Unknown Rx Inhaler(NF)] Prednisone [predniSONE 10 mg 10 mg PO .TAPER #1 tab.ds.pk 09/17/18 Unknown Rx (6-Day Pack, 21 Tabs)] Albuterol INH(or & Nicu Only) 2 puff IH QID PRN #8.5 gram 06/05/19 Unknown Rx [ProAir HFA Inhaler] Azithromycin [Zithromax Z-YESSICA] 250 mg PO DAILY #6 tab 06/05/19 Unknown Rx Benzonatate [Tessalon Perles] 100 mg PO Q8HR PRN #30 capsule 06/05/19 Unknown Rx Ibuprofen [Motrin 800 MG tab] 800 mg PO Q8HR PRN #30 tablet 06/05/19 Unknown Rx Albuterol INH(or & Nicu Only) 2 puff IH QID PRN #1 inhalation 08/03/19 Unknown Rx [ProAir HFA Inhaler] Montelukast [Singulair] 10 mg PO QPM #14 tablet 08/03/19 Unknown Rx predniSONE [Deltasone] 50 mg PO QDAY #5 tab 08/03/19 Unknown Rx ED Physical Exam - General Limitations: No Limitations General appearance: alert, in no apparent distress - Head Head exam: Present: atraumatic, normocephalic - Eye Eye exam: Present: normal appearance, PERRL, EOMI Pupils: Present: normal accommodation - ENT ENT exam: Present: normal exam, mucous membranes moist, TM's normal bilaterally - Neck Neck exam: Present: normal inspection, full ROM. Absent: tenderness, meningismus, lymphadenopathy - Respiratory Respiratory exam: Present: normal lung sounds bilaterally, wheezes, rhonchi. Absent: respiratory distress - Cardiovascular Cardiovascular Exam: Present: regular rate, normal rhythm. Absent: systolic m urmur, diastolic murmur, rubs, gallop - GI/Abdominal GI/Abdominal exam: Present: soft, normal bowel sounds - Extremities Exam Extremities exam: Present: normal inspection - Back Exam Back exam: Present: normal inspection - Neurological Exam Neurological exam: Present: alert, oriented X3 - Psychiatric Psychiatric exam: Present: normal affect, normal mood - Skin Skin exam: Present: warm, dry, intact, normal color. Absent: rash ED Course Vital Signs 08/03/19 08/03/19 08/03/19 00:18 00:55 01:00 Temperature 98.9 F 98.7 F Pulse Rate 86 71 67 Pulse Rate [ Bilateral Throughout] Respiratory 14 15 13 Rate Respiratory Rate [Bilateral Throughout] Blood Pressure 154/106 121/68 Blood Pressure 123/73 [Left] O2 Sat by Pulse 98 99 98 Oximetry 08/03/19 08/03/19 08/03/19 01:17 01:30 02:00 Temperature Pulse Rate 75 77 Pulse Rate [ 72 Bilateral Throughout] Respiratory 11 L 13 Rate Respiratory 16 Rate [Bilateral Throughout] Blood Pressure 120/84 129/76 Blood Pressure [Left] O2 Sat by Pulse 100 99 Oximetry ED Medical Decision Making - Radiology Data Radiology results: report reviewed [facility] [address] [place] [address] XRay Report Signed Patient: SHREYA BEARDEN MR#: [id number] : 1990 Acct:[id number] Age/Sex: 28 / F ADM Date: 08/03/19 Loc: ED Attending Dr: Ordering Physician: JASON CALLE MD Date of Service: 08/03/19 Procedure(s): XR chest routine 2V Accession Number(s): [id number] cc: ED MD ALVA Fluoro Time In Minutes: CHEST 2 VIEWS INDICATION / CLINICAL INFORMATION: cough and nikki. COMPARISON: 06/05/2019 FINDINGS: SUPPORT DEVICES: None. HEART / MEDIASTINUM: No significant abnormality. LUNGS / PLEURA: No significant pulmonary or pleural abnormality. No pneumothorax. No evidence of pneumonia. ADDITIONAL FINDINGS: No significant additional findings. IMPRESSION: 1. No acute findings. No interval change. Signer Name: Christiana Overton MD Signed: 08/03/2019 12:59 AM Workstation Name: [id number] Transcribed By: JR Dictated By: Christiana Overton MD Electronically Authenticated By: Christiana Overton MD Signed Date/Time: 08/03/1958 DD/ - Medical Decision Making 28-year-old F Jamaican female past medical history of asthma presents emerge department with shortness of breath and wheezing suggest suggestive of asthma exacerbation chest x-ray was normal she was treated accordingly with steroids and bronchodilators and her symptoms improved she is procedure she is resting comfortably able to speak in full sentences with no limitations. Plan is to refill her inhaler start her on Singulair and steroids and encouraged on medication compliance and environmental protections Critical care attestation.: If time is entered above; I have spent that time in minutes in the direct care of this critically ill patient, excluding procedure time. ED Disposition Clinical Impression: Asthma attack Disposition: DC-01 TO HOME OR SELFCARE Is pt being admited?: No Does the pt Need Aspirin: No Condition: Stable Instructions: Asthma (ED) Additional Instructions: Return to the hospital if your child is having difficulty breathing - breathing too fast, using neck muscles or belly to help with breathing. If your child is gasping for air or very distressed, or is turning blue around the mouth, call 911. Use albuterol every four hours until your child is seen by her touch up painter. She will need it every four hours while she recovers from this illness. Your touch up painter will give you instructions on how much longer to use it regularly and when you can go back to using it as needed. Take the Flovent twice daily as prescribed. This is your controller medication, so it needs to be taken every day whether you feel healthy or sick. It is to help prevent you from having an asthma attack. Prescriptions: predniSONE [Deltasone] 50 mg PO QDAY #5 tab Albuterol INH(or & Nicu Only) [ProAir HFA Inhaler] 2 puff IH QID PRN #1 inhalation PRN Reason: Shortness Of Breath Montelukast [Singulair] 10 mg PO QPM #14 tablet Referrals: ADDISON SYED MD [Primary Care Provider] - 3-5 Days
[2019-08-03 03:36] VITALS: BP 111/75
== END 2019-08-03 03:58 | disposition home or self-care (01) ==
LOC: ED 00:12
DX: J45.909 Unspecified asthma, uncomplicated (principal); I10 Essential (primary) hypertension; F17.200 Nicotine dependence, unspecified, uncomplicated; F12.10 Cannabis abuse, uncomplicated; Z79.899 Other long term (current) drug therapy
CPT/HCPCS: 71046; 94644; 99283; J7512; 94640

== ENCOUNTER 2019-11-10 09:12 | Emergency (ER) | payer OTHER ==
[2019-11-10 09:20] VITALS: BP 151/94
== END 2019-11-10 10:18 | disposition left against medical advice (07) ==
LOC: ED 09:12
DX: R05 Cough (principal); H57.11 Ocular pain, right eye; Z53.21 Procedure and treatment not carried out due to patient leaving prior to being seen by health care provider

== ENCOUNTER 2019-11-10 10:55 | Emergency (ER) | payer OTHER ==
--- NOTE | 2019-11-10 11:12 | Emergency Department Report ---
ED Eye Problem HPI - General Stated complaint: POSSIBLE PINK EYE/COUGHING Time Seen by Provider: 11/10/19 11:09 - History of Present Illness Initial comments: pt is a 28 yo female who presents to the ED with c/o right eye erythema and irritation that began yesterday. she states that she was around someone with a stye. she states she has had drainage. no contact lens use. she denies anything getting into the eye. she has associated photophobia. she states she also has a cough for 3 days. she states it is non productive. no fever, no vomiting, diarrhea, SOB, CP. PMHx none. no allergies to meds. no known sick contacts. states she recently returned from [place]. she is a smoker. - Related Data Previous Rx's Medication Instructions Recorded Last Taken Type Ondansetron [Zofran TAB] 4 mg PO Q8HR PRN #20 tablet 05/12/17 Unknown Rx Tamsulosin HCl [Flomax] 0.4 mg PO DAILY #30 cap.er.24h 05/12/17 Unknown Rx traMADoL [Ultram] 50 mg PO Q8HR PRN #30 tablet 05/12/17 Unknown Rx Albuterol INH(or & Nicu Only) 2 puff IH QID PRN #1 inhalation 12/24/17 Unknown Rx [ProAir HFA Inhaler] Amoxicillin [Amoxicillin TAB] 875 mg PO BID #14 tablet 12/24/17 Unknown Rx guaiFENesin/CODEINE [Robitussin AC] 10 ml PO TID PRN #100 ml 12/24/17 Unknown Rx ALBUTEROL Inhaler(NF) [VENTOLIN 2 puff IH Q4-6H PRN #1 inha 09/17/18 Unknown Rx Inhaler(NF)] Prednisone [predniSONE 10 mg 10 mg PO .TAPER #1 tab.ds.pk 09/17/18 Unknown Rx (6-Day Pack, 21 Tabs)] Albuterol INH(or & Nicu Only) 2 puff IH QID PRN #8.5 gram 06/05/19 Unknown Rx [ProAir HFA Inhaler] Azithromycin [Zithromax Z-YESSICA] 250 mg PO DAILY #6 tab 06/05/19 Unknown Rx Benzonatate [Tessalon Perles] 100 mg PO Q8HR PRN #30 capsule 06/05/19 Unknown Rx Ibuprofen [Motrin 800 MG tab] 800 mg PO Q8HR PRN #30 tablet 06/05/19 Unknown Rx Albuterol INH(or & Nicu Only) 2 puff IH QID PRN #1 inhalation 08/03/19 Unknown Rx [ProAir HFA Inhaler] Montelukast [Singulair] 10 mg PO QPM #14 tablet 08/03/19 Unknown Rx predniSONE [Deltasone] 50 mg PO QDAY #5 tab 08/03/19 Unknown Rx Erythromycin [Erythromycin Ophth 1 applic OP QID 10 Days #1 tube 11/10/19 Unknown Rx Oint] Allergies Allergy/AdvReac Type Severity Reaction Status Date / Time No Known Allergies Allergy Verified 11/10/19 09:16 ED Review of Systems ROS: Stated complaint: POSSIBLE PINK EYE/COUGHING Other details as noted in HPI Comment: All other systems reviewed and negative ED Past Medical Hx - Past Medical History Hx Hypertension: Yes (DURING PREG) Hx Asthma: Yes Additional medical history: heart murmur, Bronchitis - Surgical History Additional Surgical History: C SECTION x2 - Social History Smoking Status: Current Every Day Smoker Substance Use Type: Alcohol, Marijuana - Medications Home Medications: Home Medications Medication Instructions Recorded Confirmed Last Taken Type Ondansetron [Zofran TAB] 4 mg PO Q8HR PRN #20 tablet 05/12/17 Unknown Rx Tamsulosin HCl [Flomax] 0.4 mg PO DAILY #30 cap.er.24h 05/12/17 Unknown Rx traMADoL [Ultram] 50 mg PO Q8HR PRN #30 tablet 05/12/17 Unknown Rx Albuterol INH(or & Nicu Only) 2 puff IH QID PRN #1 inhalation 12/24/17 Unknown Rx [ProAir HFA Inhaler] Amoxicillin [Amoxicillin TAB] 875 mg PO BID #14 tablet 12/24/17 Unknown Rx guaiFENesin/CODEINE [Robitussin AC] 10 ml PO TID PRN #100 ml 12/24/17 Unknown Rx ALBUTEROL Inhaler(NF) [VENTOLIN 2 puff IH Q4-6H PRN #1 inha 09/17/18 Unknown Rx Inhaler(NF)] Prednisone [predniSONE 10 mg 10 mg PO .TAPER #1 tab.ds.pk 09/17/18 Unknown Rx (6-Day Pack, 21 Tabs)] Albuterol INH(or & Nicu Only) 2 puff IH QID PRN #8.5 gram 06/05/19 Unknown Rx [ProAir HFA Inhaler] Azithromycin [Zithromax Z-YESSICA] 250 mg PO DAILY #6 tab 06/05/19 Unknown Rx Benzonatate [Tessalon Perles] 100 mg PO Q8HR PRN #30 capsule 06/05/19 Unknown Rx Ibuprofen [Motrin 800 MG tab] 800 mg PO Q8HR PRN #30 tablet 06/05/19 Unknown Rx Albuterol INH(or & Nicu Only) 2 puff IH QID PRN #1 inhalation 08/03/19 Unknown Rx [ProAir HFA Inhaler] Montelukast [Singulair] 10 mg PO QPM #14 tablet 08/03/19 Unknown Rx predniSONE [Deltasone] 50 mg PO QDAY #5 tab 08/03/19 Unknown Rx Erythromycin [Erythromycin Ophth 1 applic OP QID 10 Days #1 tube 11/10/19 Unknown Rx Oint] ED Physical Exam - General General appearance: alert, in no apparent distress - Head Head exam: Present: atraumatic, normocephalic - Eye Eye exam: Present: PERRL, EOMI, conjunctival injection (right), nystagmus, other (small amount of mucus drainage in the eye, no obvious signs of ulcerations, no visualized foreign body, no signs of hordeolum, chalazion, or dacrocystitis). Absent: scleral icterus, periorbital swelling, periorbital tenderness - ENT ENT exam: Present: mucous membranes moist - Respiratory Respiratory exam: Present: normal lung sounds bilaterally. Absent: respiratory distress, wheezes, rales, rhonchi, stridor, chest wall tenderness, accessory muscle use, decreased breath sounds, prolonged expiratory - Cardiovascular Cardiovascular Exam: Present: regular rate, normal rhythm, normal heart sounds. Absent: systolic murmur, diastolic murmur, rubs, gallop - Neurological Exam Neurological exam: Present: alert, oriented X3 - Psychiatric Psychiatric exam: Present: normal affect, normal mood - Skin Skin exam: Present: warm, dry, intact ED Course Vital Signs 11/10/19 11/10/19 11:10 11:16 Temperature 97.9 F Pulse Rate 98 H 87 Respiratory 20 18 Rate Blood Pressure 151/94 Blood Pressure 147/98 [Left] O2 Sat by Pulse 99 99 Oximetry ED Medical Decision Making - Medical Decision Making pt is a 28 yo female who presents to the ED with c/o right eye erythema and irritation that began yesterday. she states that she was around someone with a stye. she states she has had drainage. no contact lens use. she denies anything getting into the eye. she has associated photophobia. she states she also has a cough for 3 days. she states it is non productive. no fever, no vomiting, diarrhea, SOB, CP. PMHx none. no allergies to meds. no known sick contacts. states she recently returned from [place]. she is a smoker. Vitals are stable. Patient is afebrile, no hypoxia, no tachycardia. on exam: right conjunctival injection,small amount of mucus drainage in the eye, no obvious signs of ulcerations, no visualized foreign body, no signs of hordeolum, chalazion, or dacrocystitis, no periorbital edema. Examination consistent with conjunctivitis. Breath sounds are clear bilaterally, no clinical signs or symptoms of pneumonia. Patient has had a dry cough for 3 days, she has no fever, no vomiting, no diarrhea, no shortness of breath, no chest pain, no known sick contacts. Cough could be related to viral syndrome versus allergies. Discussed supportive care and submitted to medic treatment with patient. Due to recent travel and dry cough during the COVID-19 pandemic, advised patient that she would need to self quarantine for 2 weeks. Spoke with patient in great length about strict return precautions. Discussed that she would need to follow-up with the advertising campaign manager and a primary care physician. Patient given prescription for erythromycin ophthalmic ointment. Advised patient please use medication as prescribed. please wash your hands frequently. avoid rubbing the eye. increase your fluid intake. may drink warm tea. may use mucinex or theraflu over the counter. follow up with a primary care doctor in the next 2-3 days. use a humidifier. follow up with an advertising campaign manager. return to the emergency room for any new or worsening symptoms including but not limited to high fever, unable to tolerate by mouth intake, shortness of breath, difficulty breathing, chest pain, etc. please self quarantine for 2 weeks, do not go out in public. if you are around others at home please wear a mask. if you cough or sneeze please do so in a napkin and immediately wash your hands. wash your hands frequently, wipe everything down. Critical care attestation.: If time is entered above; I have spent that time in minutes in the direct care of this critically ill patient, excluding procedure time. ED Disposition Clinical Impression: Dry cough Conjunctivitis Qualifiers: Conjunctivitis type: acute Acute conjunctivitis type: unspecified Laterality: right Qualified Code(s): H10.31 - Unspecified acute conjunctivitis, right eye Disposition: - TO HOME OR SELFCARE Is pt being admited?: No Does the pt Need Aspirin: No Condition: Stable Instructions: COVID-19, Conjunctivitis (ED), Viral Syndrome (ED) Additional Instructions: please use medication as prescribed. please wash your hands frequently. avoid rubbing the eye. increase your fluid intake. may drink warm tea. may use mucinex or theraflu over the counter. follow up with a primary care doctor in the next 2-3 days. use a humidifier. follow up with an advertising campaign manager. return to the emergency room for any new or worsening symptoms including but not limited to high fever, unable to tolerate by mouth intake, shortness of breath, difficulty breathing, chest pain, etc. please self quarantine for 2 weeks, do not go out in public. if you are around others at home please wear a mask. if you cough or sneeze please do so in a napkin and immediately wash your hands. wash your hands frequently, wipe everything down. Prescriptions: Erythromycin [Erythromycin Ophth Oint] 1 applic OP QID 10 Days #1 tube Referrals: TRE MARTINEZ MD [Staff Physician] - 2-3 Days [facility] [Provider Group] - 2-3 Days [facility] [Provider Group] - 2-3 Days Time of Disposition: 11:16 Print Language: LAO
[2019-11-10 11:17] VITALS: BP 147/98
== END 2019-11-10 11:30 | disposition home or self-care (01) ==
LOC: ED 10:55
DX: H10.31 Unspecified acute conjunctivitis, right eye (principal); R05 Cough; Z79.1 Long term (current) use of non-steroidal anti-inflammatories (NSAID); Z79.899 Other long term (current) drug therapy; Z87.09 Personal history of other diseases of the respiratory system; F17.200 Nicotine dependence, unspecified, uncomplicated; F12.10 Cannabis abuse, uncomplicated
CPT/HCPCS: 99282

== ENCOUNTER 2019-12-17 04:38 | Emergency (ER) | payer OTHER ==
[2019-12-17 04:49] VITALS: BP 155/98
--- NOTE | 2019-12-17 05:55 | XRay Report ---
CHEST 1 VIEW INDICATION / CLINICAL INFORMATION: Chest Pain. COMPARISON: 08/03/2019 FINDINGS: SUPPORT DEVICES: None. HEART / MEDIASTINUM: No significant abnormality. LUNGS / PLEURA: No significant pulmonary or pleural abnormality. No pneumothorax. ADDITIONAL FINDINGS: No significant additional findings. IMPRESSION: 1. No acute findings. Signer Name: Barry Sanchez MD Signed: 12/17/2019 5:51 AM Workstation Name: [id number]
[2019-12-17] MEDS ORDERED: dexAMETHasone 20 MG/5 ML VIAL IV ONE (08:21)
[2019-12-17] MEDS ORDERED: ALBUTEROL 2.5 MG/3 ML NEBU IH ONE (08:21)
[2019-12-17] MEDS ORDERED: IPRATROPIUM 0.02% NEBU 2.5 ML IH ONE (08:21)
--- NOTE | 2019-12-17 12:18 | Emergency Department Report ---
ED Asthma HPI - General Chief Complaint: Dyspnea/Respdistress Stated Complaint: CHEST PAIN/ADDIS/WHEEZING/COUGH Time Seen by Provider: 12/17/19 08:13 Source: patient Mode of arrival: Ambulatory Limitations: No Limitations - History of Present Illness Initial Comments: 28-year-old -[place] female patient with history of asthma presents with complaints of asthma exacerbation x 3 days. Patient states her symptoms began when she ran out of her albuterol inhaler. Patient is currently a smoker of both cigarettes and marijuana. She states she has a cough that is productive of green mucus, however denies any fever/chills/sweats, chest pain, leg pain/swelling, hormone use, history of DVT/PE, recent long travel, hemoptysis, or history of cancer. She denies any congestion or loss of smell or taste or known sick contacts. Patient states this feels like her normal asthma exacerbation. - Related Data Previous Rx's Medication Instructions Recorded Last Taken Type Ondansetron [Zofran TAB] 4 mg PO Q8HR PRN #20 tablet 05/12/17 Unknown Rx Tamsulosin HCl [Flomax] 0.4 mg PO DAILY #30 cap.er.24h 05/12/17 Unknown Rx traMADoL [Ultram] 50 mg PO Q8HR PRN #30 tablet 05/12/17 Unknown Rx Albuterol Mdi (or & Nicu Only) 2 puff IH QID PRN #1 inhalation 12/24/17 Unknown Rx [ProAir HFA Inhaler] Amoxicillin [Amoxicillin TAB] 875 mg PO BID #14 tablet 12/24/17 Unknown Rx guaiFENesin/CODEINE [Robitussin AC] 10 ml PO TID PRN #100 ml 12/24/17 Unknown Rx ALBUTEROL Inhaler(NF) [VENTOLIN 2 puff IH Q4-6H PRN #1 inha 09/17/18 Unknown Rx Inhaler(NF)] Albuterol Mdi (or & Nicu Only) 2 puff IH QID PRN #8.5 gram 06/05/19 Unknown Rx [ProAir HFA Inhaler] Azithromycin [Zithromax Z-YESSICA] 250 mg PO DAILY #6 tab 06/05/19 Unknown Rx Benzonatate [Tessalon Perles] 100 mg PO Q8HR PRN #30 capsule 06/05/19 Unknown Rx Ibuprofen [Motrin 800 MG tab] 800 mg PO Q8HR PRN #30 tablet 06/05/19 Unknown Rx Albuterol Mdi (or & Nicu Only) 2 puff IH QID PRN #1 inhalation 08/03/19 Unknown Rx [ProAir HFA Inhaler] predniSONE [Deltasone] 50 mg PO QDAY #5 tab 08/03/19 Unknown Rx Erythromycin [Erythromycin Ophth 1 applic OP QID 10 Days #1 tube 11/10/19 Unknown Rx Oint] ALBUTEROL NEB's [Proventil 0.083% 2.5 mg IH TID PRN #30 neb 12/17/19 Unknown Rx NEBS] Albuterol Mdi (or & Nicu Only) 1 puff IH Q4H PRN 30 Days #8.5 gram 12/17/19 Unknown Rx [ProAir HFA Inhaler] Montelukast [Singulair] 10 mg PO QPM 30 Days #30 tablet 12/17/19 Unknown Rx Nebulizer Accessories [Innospire 1 each MC Q4H PRN #1 each 12/17/19 Unknown Rx Replacement Filter] Nebulizer and Compressor [Ombra 1 each MC Q4H PRN #1 each 12/17/19 Unknown Rx Compressor System] Prednisone [predniSONE 10 mg 10 mg PO .TAPER #1 tab.ds.pk 12/17/19 Unknown Rx (6-Day Pack, 21 Tabs)] Allergies Allergy/AdvReac Type Severity Reaction Status Date / Time No Known Allergies Allergy Verified 11/10/19 09:16 ED Review of Systems ROS: Stated complaint: CHEST PAIN/ADDIS/WHEEZING/COUGH Other details as noted in HPI Constitutional: denies: chills, diaphoresis, fever, malaise, weakness ENT: denies: throat pain Respiratory: cough, shortness of breath Cardiovascular: denies: chest pain Gastrointestinal: denies: abdominal pain, nausea, vomiting, diarrhea Musculoskeletal: denies: back pain Skin: denies: rash, lesions Neurological: denies: headache Hematological/Lymphatic: denies: swollen glands ED Past Medical Hx - Past Medical History Previous Medical History?: Yes Hx Hypertension: Yes (DURING PREG) Hx Asthma: Yes Additional medical history: heart murmur, Bronchitis - Surgical History Past Surgical History?: Yes Additional Surgical History: C SECTION x2 - Social History Smoking Status: Current Every Day Smoker Substance Use Type: None - Medications Home Medications: Home Medications Medication Instructions Recorded Confirmed Last Taken Type Ondansetron [Zofran TAB] 4 mg PO Q8HR PRN #20 tablet 05/12/17 Unknown Rx Tamsulosin HCl [Flomax] 0.4 mg PO DAILY #30 cap.er.24h 05/12/17 Unknown Rx traMADoL [Ultram] 50 mg PO Q8HR PRN #30 tablet 05/12/17 Unknown Rx Albuterol Mdi (or & Nicu Only) 2 puff IH QID PRN #1 inhalation 12/24/17 Unknown Rx [ProAir HFA Inhaler] Amoxicillin [Amoxicillin TAB] 875 mg PO BID #14 tablet 12/24/17 Unknown Rx guaiFENesin/CODEINE [Robitussin AC] 10 ml PO TID PRN #100 ml 12/24/17 Unknown Rx ALBUTEROL Inhaler(NF) [VENTOLIN 2 puff IH Q4-6H PRN #1 inha 09/17/18 Unknown Rx Inhaler(NF)] Albuterol Mdi (or & Nicu Only) 2 puff IH QID PRN #8.5 gram 06/05/19 Unknown Rx [ProAir HFA Inhaler] Azithromycin [Zithromax Z-YESSICA] 250 mg PO DAILY #6 tab 06/05/19 Unknown Rx Benzonatate [Tessalon Perles] 100 mg PO Q8HR PRN #30 capsule 06/05/19 Unknown Rx Ibuprofen [Motrin 800 MG tab] 800 mg PO Q8HR PRN #30 tablet 06/05/19 Unknown Rx Albuterol Mdi (or & Nicu Only) 2 puff IH QID PRN #1 inhalation 08/03/19 Unknown Rx [ProAir HFA Inhaler] predniSONE [Deltasone] 50 mg PO QDAY #5 tab 08/03/19 Unknown Rx Erythromycin [Erythromycin Ophth 1 applic OP QID 10 Days #1 tube 11/10/19 Unknown Rx Oint] ALBUTEROL NEB's [Proventil 0.083% 2.5 mg IH TID PRN #30 neb 12/17/19 Unknown Rx NEBS] Albuterol Mdi (or & Nicu Only) 1 puff IH Q4H PRN 30 Days #8.5 gram 12/17/19 Unknown Rx [ProAir HFA Inhaler] Montelukast [Singulair] 10 mg PO QPM 30 Days #30 tablet 12/17/19 Unknown Rx Nebulizer Accessories [Innospire 1 each MC Q4H PRN #1 each 12/17/19 Unknown Rx Replacement Filter] Nebulizer and Compressor [Ombra 1 each MC Q4H PRN #1 each 12/17/19 Unknown Rx Compressor System] Prednisone [predniSONE 10 mg 10 mg PO .TAPER #1 tab.ds.pk 12/17/19 Unknown Rx (6-Day Pack, 21 Tabs)] ED Physical Exam - General Limitations: No Limitations General appearance: alert, in no apparent distress, obese - Head Head exam: Present: atraumatic, normocephalic - Eye Eye exam: Present: normal appearance. Absent: scleral icterus - ENT ENT exam: Present: normal orophraynx, mucous membranes moist - Neck Neck exam: Present: normal inspection, full ROM. Absent: tenderness - Respiratory Respiratory exam: Present: wheezes, rhonchi. Absent: respiratory distress, rales - Cardiovascular Cardiovascular Exam: Present: regular rate, normal rhythm. Absent: systolic murmur, diastolic murmur, rubs, gallop - Extremities Exam Extremities exam: Present: normal inspection. Absent: calf tenderness (No swelling or tenderness noted to lower extremities bilaterally) - Back Exam Back exam: Present: normal inspection - Neurological Exam Neurological exam: Present: alert, oriented X3 - Psychiatric Psychiatric exam: Present: normal affect, normal mood - Skin Skin exam: Present: warm, dry, intact, normal color. Absent: rash, cyanosis, erythema, petechiae, ecchymosis ED Course Vital Signs 12/17/19 04:43 Temperature 97.6 F Pulse Rate 88 Respiratory 16 Rate Blood Pressure 155/98 O2 Sat by Pulse 98 Oximetry ED Medical Decision Making - Radiology Data Radiology results: report reviewed CHEST 1 VIEW INDICATION / CLINICAL INFORMATION: Chest Pain. COMPARISON: 08/03/2019 FINDINGS: SUPPORT DEVICES: None. HEART / MEDIASTINUM: No significant abnormality. LUNGS / PLEURA: No significant pulmonary or pleural abnormality. No pneumothorax. ADDITIONAL FINDINGS: No significant additional findings. IMPRESSION: 1. No acute findings. - Medical Decision Making Patient presents with an asthma exacerbation. Chest x-ray is normal. Patient was given a continuous DuoNeb treatment and Decadron. Patient states she is no longer short of breath posttreatment. Wheezing has decreased bilaterally in her lungs posttreatment on reexamination. Patient has been seen here multiple times in the past for asthma exacerbation. Patient provided with prescription for at home nebulizer and refills of her albuterol and Singulair. Discussed in detail importance of smoking cessation and strict return precautions in detail with patient who verbalized understanding. Her vitals are normal and she is well- appearing and stable for discharge home. Patient given referral for Dr. Arevalo of for follow-up. Critical care attestation.: If time is entered above; I have spent that time in minutes in the direct care of this critically ill patient, excluding procedure time. ED Disposition Clinical Impression: Asthma exacerbation Qualifiers: Asthma severity: moderate Asthma persistence: persistent Qualified Code(s): J45.41 - Moderate persistent asthma with (acute) exacerbation Disposition: DC- TO HOME OR SELFCARE Is pt being admited?: No Condition: Stable Prescriptions: Nebulizer Accessories [Innospire Replacement Filter] 1 each MC Q4H PRN #1 each PRN Reason: Shortness Of Breath Nebulizer and Compressor [Ombra Compressor System] 1 each MC Q4H PRN #1 each PRN Reason: shortness of breath Prednisone [predniSONE 10 mg (6-Day Pack, 21 Tabs)] 10 mg PO .TAPER #1 tab.ds.pk Albuterol Mdi (or & Nicu Only) [ProAir HFA Inhaler] 1 puff IH Q4H PRN 30 Days #8.5 gram PRN Reason: Shortness Of Breath ALBUTEROL NEB's [Proventil 0.083% NEBS] 2.5 mg IH TID PRN #30 neb PRN Reason: shortness of breath Montelukast [Singulair] 10 mg PO QPM 30 Days #30 tablet Referrals: TRE AREVALO MD [Staff Physician] - 3-5 Days
== END 2019-12-17 13:25 | disposition home or self-care (01) ==
LOC: ED 04:38
DX: J45.901 Unspecified asthma with (acute) exacerbation (principal); F17.200 Nicotine dependence, unspecified, uncomplicated
CPT/HCPCS: 71045; 93005; 94640; 96374; 99283; J1100

== ENCOUNTER 2020-06-04 11:58 | Emergency (ER) | payer SELFPAY ==
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
[2020-06-04 13:31] LABS: Basophils # (Auto) 0.1 K/mm3 (0.0-0.1); Basophils % (Auto) 0.6 % (0.0-1.8); Eosinophils # (Auto) 0.1 K/mm3 (0.0-0.4); Eosinophils % (Auto) 0.7 % (0.0-4.3); Hematocrit 37.7 % (30.3-42.9); Hemoglobin 12.9 gm/dl (10.1-14.3); Lymphocytes # (Auto) 2.4 K/mm3 (1.2-5.4); Lymphocytes % (Auto) 26.6 % (13.4-35.0); Mean Corpuscular HGB Conc 34 % (30-34); Mean Corpuscular Volume 89 fl (79-97); Monocytes # (Auto) 0.5 K/mm3 (0.0-0.8); Monocytes % (Auto) 6.1 % (0.0-7.3); Platelet Count 271 K/mm3 (140-440); Red Blood Count 4.23 M/mm3 (3.65-5.03); Red Cell Distribution Width 13.1 % (13.2-15.2)
[2020-06-04 13:52] LABS: Alanine Aminotransferase 25 units/L (7-56); Albumin 4.4 g/dL (3.9-5); Blood Urea Nitrogen 5 mg/dL (7-17); Calcium 9.9 mg/dL (8.4-10.2); Hemolysis Index 5
[2020-06-04 14:10] LABS: BUN/Creatinine Ratio 7
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
--- NOTE | 2020-06-04 14:34 | XRay Report ---
CHEST 2 VIEWS INDICATION / CLINICAL INFORMATION: cough. COMPARISON: Chest one view from 12/17/2019. FINDINGS: SUPPORT DEVICES: None. HEART / MEDIASTINUM: No significant abnormality. LUNGS / PLEURA: No significant pulmonary or pleural abnormality. No pneumothorax. ADDITIONAL FINDINGS: No significant additional findings. IMPRESSION: 1. No acute abnormality of the chest. Signer Name: Nicanor Chan MD Signed: 06/04/2020 2:29 PM Workstation Name: [id number]
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
== END 2020-06-04 16:30 | disposition home or self-care (01) ==
LOC: ED 11:58
DX: S69.92XA Unspecified injury of left wrist, hand and finger(s), initial encounter (principal); R53.1 Weakness; G56.03 Carpal tunnel syndrome, bilateral upper limbs; J45.909 Unspecified asthma, uncomplicated; F17.200 Nicotine dependence, unspecified, uncomplicated; I10 Essential (primary) hypertension; Z79.899 Other long term (current) drug therapy
CPT/HCPCS: 36415; 71046; 80053; 84703; 85025; 99283

== ENCOUNTER 2021-02-26 07:46 | Emergency (ER) | payer SELFPAY ==
[2021-02-26 07:54] VITALS: BP 148/76
[2021-02-26] MEDS ORDERED: ALBUTEROL 2.5 MG/3 ML NEBU IH ONE (07:58)
[2021-02-26] MEDS ORDERED: IPRATROPIUM 0.02% NEBU 2.5 ML IH ONE (07:58)
[2021-02-26] MEDS ORDERED: predniSONE 20 MG TAB PO ONE (07:59)
--- NOTE | 2021-02-26 08:06 | Emergency Department Report ---
ED Asthma HPI - General Chief Complaint: Dyspnea/Respdistress Stated Complaint: CHEST PAINS PUI?: No Time Seen by Provider: 02/26/21 07:55 Source: patient Mode of arrival: Ambulatory Limitations: No Limitations - History of Present Illness Initial Comments: CC: "I need a breathing treatment." HPI: This is a 30 yo female with hx of asthma, tobacco use, heart murmur who presents with shortness of breath. She has cough and shortness of breath. She does not have access to her inhaler or nebulizer. Her medications and equipment were in a vehicle which was towed. She denies fever, chest pian, abdominal pain. She recently received her first dose of COVID vaccine. MD Complaint: "asthma attack", shortness of breath -: Gradual, days(s) (one day) Asthma History: history of frequent attac, history of prior ED visit Severity: mild Context: ran out of meds Associated Symptoms: dry cough - Related Data Previous Rx's Medication Instructions Recorded Last Taken Type Ondansetron [Zofran TAB] 4 mg PO Q8HR PRN #20 tablet 05/12/17 Unknown Rx Tamsulosin HCl [Flomax] 0.4 mg PO DAILY #30 cap.er.24h 05/12/17 Unknown Rx traMADoL [Ultram] 50 mg PO Q8HR PRN #30 tablet 05/12/17 Unknown Rx Albuterol Mdi (or & Nicu Only) 2 puff IH QID PRN #1 inhalation 12/24/17 Unknown Rx [ProAir HFA Inhaler] Amoxicillin [Amoxicillin TAB] 875 mg PO BID #14 tablet 12/24/17 Unknown Rx guaiFENesin/CODEINE [Robitussin AC] 10 ml PO TID PRN #100 ml 12/24/17 Unknown Rx ALBUTEROL Inhaler(NF) [VENTOLIN 2 puff IH Q4-6H PRN #1 inha 09/17/18 Unknown Rx Inhaler(NF)] Albuterol Mdi (or & Nicu Only) 2 puff IH QID PRN #8.5 gram 06/05/19 Unknown Rx [ProAir HFA Inhaler] Azithromycin [Zithromax Z-YESSICA] 250 mg PO DAILY #6 tab 06/05/19 Unknown Rx Benzonatate [Tessalon Perles] 100 mg PO Q8HR PRN #30 capsule 06/05/19 Unknown Rx Ibuprofen [Motrin 800 MG tab] 800 mg PO Q8HR PRN #30 tablet 06/05/19 Unknown Rx Albuterol Mdi (or & Nicu Only) 2 puff IH QID PRN #1 inhalation 08/03/19 Unknown Rx [ProAir HFA Inhaler] predniSONE [Deltasone] 50 mg PO QDAY #5 tab 08/03/19 Unknown Rx Erythromycin [Erythromycin Ophth 1 applic OP QID 10 Days #1 tube 11/10/19 Unknown Rx Oint] ALBUTEROL NEB's [Proventil 0.083% 2.5 mg IH TID PRN #30 neb 12/17/19 Unknown Rx NEBS] Albuterol Mdi (or & Nicu Only) 1 puff IH Q4H PRN 30 Days #8.5 gram 12/17/19 Unknown Rx [ProAir HFA Inhaler] Montelukast [Singulair] 10 mg PO QPM 30 Days #30 tablet 12/17/19 Unknown Rx Nebulizer Accessories [Innospire 1 each MC Q4H PRN #1 each 12/17/19 Unknown Rx Replacement Filter] Nebulizer and Compressor [Ombra 1 each MC Q4H PRN #1 each 12/17/19 Unknown Rx Compressor System] Prednisone [predniSONE 10 mg 10 mg PO .TAPER #1 tab.ds.pk 12/17/19 Unknown Rx (6-Day Pack, 21 Tabs)] Naproxen [Naprosyn] 500 mg PO BID #14 tablet 06/04/20 Unknown Rx ALBUTEROL NEB's [Proventil 0.083% 2.5 mg IH Q6H PRN #1 box 02/26/21 Unknown Rx NEBS] Albuterol Mdi (or & Nicu Only) 2 puff IH Q6H PRN #8.5 gram 02/26/21 Unknown Rx [ProAir HFA Inhaler] Prednisone [predniSONE 10 mg 10 mg PO .TAPER #1 tab.ds.pk 02/26/21 Unknown Rx (6-Day Pack, 21 Tabs)] Allergies Allergy/AdvReac Type Severity Reaction Status Date / Time No Known Allergies Allergy Verified 06/04/20 12:09 ED Review of Systems ROS: Stated complaint: CHEST PAINS Other details as noted in HPI Comment: All other systems reviewed and negative Constitutional: denies: chills, fever, malaise Respiratory: cough, shortness of breath, wheezing Cardiovascular: denies: chest pain Gastrointestinal: denies: abdominal pain, nausea, vomiting ED Past Medical Hx - Past Medical History Previous Medical History?: Yes Hx Hypertension: Yes (DURING PREG) Hx Asthma: Yes Additional medical history: heart murmur, Bronchitis - Surgical History Past Surgical History?: Yes Additional Surgical History: C SECTION x2 - Social History Smoking Status: Current Every Day Smoker Substance Use Type: None - Medications Home Medications: Home Medications Medication Instructions Recorded Confirmed Last Taken Type Ondansetron [Zofran TAB] 4 mg PO Q8HR PRN #20 tablet 05/12/17 Unknown Rx Tamsulosin HCl [Flomax] 0.4 mg PO DAILY #30 cap.er.24h 05/12/17 Unknown Rx traMADoL [Ultram] 50 mg PO Q8HR PRN #30 tablet 05/12/17 Unknown Rx Albuterol Mdi (or & Nicu Only) 2 puff IH QID PRN #1 inhalation 12/24/17 Unknown Rx [ProAir HFA Inhaler] Amoxicillin [Amoxicillin TAB] 875 mg PO BID #14 tablet 12/24/17 Unknown Rx guaiFENesin/CODEINE [Robitussin AC] 10 ml PO TID PRN #100 ml 12/24/17 Unknown Rx ALBUTEROL Inhaler(NF) [VENTOLIN 2 puff IH Q4-6H PRN #1 inha 09/17/18 Unknown Rx Inhaler(NF)] Albuterol Mdi (or & Nicu Only) 2 puff IH QID PRN #8.5 gram 06/05/19 Unknown Rx [ProAir HFA Inhaler] Azithromycin [Zithromax Z-YESSICA] 250 mg PO DAILY #6 tab 06/05/19 Unknown Rx Benzonatate [Tessalon Perles] 100 mg PO Q8HR PRN #30 capsule 06/05/19 Unknown Rx Ibuprofen [Motrin 800 MG tab] 800 mg PO Q8HR PRN #30 tablet 06/05/19 Unknown Rx Albuterol Mdi (or & Nicu Only) 2 puff IH QID PRN #1 inhalation 08/03/19 Unknown Rx [ProAir HFA Inhaler] predniSONE [Deltasone] 50 mg PO QDAY #5 tab 08/03/19 Unknown Rx Erythromycin [Erythromycin Ophth 1 applic OP QID 10 Days #1 tube 11/10/19 Unknown Rx Oint] ALBUTEROL NEB's [Proventil 0.083% 2.5 mg IH TID PRN #30 neb 12/17/19 Unknown Rx NEBS] Albuterol Mdi (or & Nicu Only) 1 puff IH Q4H PRN 30 Days #8.5 gram 12/17/19 Unknown Rx [ProAir HFA Inhaler] Montelukast [Singulair] 10 mg PO QPM 30 Days #30 tablet 12/17/19 Unknown Rx Nebulizer Accessories [Innospire 1 each MC Q4H PRN #1 each 12/17/19 Unknown Rx Replacement Filter] Nebulizer and Compressor [Ombra 1 each MC Q4H PRN #1 each 12/17/19 Unknown Rx Compressor System] Prednisone [predniSONE 10 mg 10 mg PO .TAPER #1 tab.ds.pk 12/17/19 Unknown Rx (6-Day Pack, 21 Tabs)] Naproxen [Naprosyn] 500 mg PO BID #14 tablet 06/04/20 Unknown Rx ALBUTEROL NEB's [Proventil 0.083% 2.5 mg IH Q6H PRN #1 box 02/26/21 Unknown Rx NEBS] Albuterol Mdi (or & Nicu Only) 2 puff IH Q6H PRN #8.5 gram 02/26/21 Unknown Rx [ProAir HFA Inhaler] Prednisone [predniSONE 10 mg 10 mg PO .TAPER #1 tab.ds.pk 02/26/21 Unknown Rx (6-Day Pack, 21 Tabs)] ED Physical Exam - General Limitations: No Limitations General appearance: alert, in no apparent distress, other (Frequent cough) - Head Head exam: Present: atraumatic, normocephalic - Eye Eye exam: Present: normal appearance - ENT ENT exam: Present: mucous membranes moist - Neck Neck exam: Present: normal inspection - Respiratory Respiratory exam: Present: normal lung sounds bilaterally. Absent: respiratory distress, wheezes, rales, rhonchi, chest wall tenderness, accessory muscle use, decreased breath sounds, prolonged expiratory - Cardiovascular Cardiovascular Exam: Present: regular rate, normal rhythm. Absent: systolic murmur, diastolic murmur, rubs, gallop - GI/Abdominal GI/Abdominal exam: Present: soft, normal bowel sounds - Extremities Exam Extremities exam: Present: normal inspection - Back Exam Back exam: Present: normal inspection - Neurological Exam Neurological exam: Present: alert, oriented X3 - Psychiatric Psychiatric exam: Present: normal affect, normal mood - Skin Skin exam: Present: warm, dry, intact, normal color. Absent: rash ED Course Vital Signs 02/26/21 07:52 Temperature 98 F Pulse Rate 79 Respiratory 16 Rate Blood Pressure 148/76 [Left] O2 Sat by Pulse 97 Oximetry ED Medical Decision Making - Radiology Data Asthma exacerbation: Frequent cough noted,. Patient received albuterol 5 mg Atrovent 1 mg p.o. prednisone. Prescribed albuterol solution and albuterol MDI. Prescribed prednisone taper. Referred to internal medicine physician patients that have a primary physician. - Medical Decision Making Mild asthma exacerbation: Patient received albuterol 5 mg 1 mg Atrovent emergency department. She received p.o. prednisone. Discharged with albuterol nebulizer solution, albuterol MDI and prednisone taper. Referred to internal medicine physician. Critical care attestation.: If time is entered above; I have spent that time in minutes in the direct care of this critically ill patient, excluding procedure time. ED Disposition Clinical Impression: Asthma exacerbation Disposition: HOME / SELF CARE / HOMELESS Is pt being admited?: No Does the pt Need Aspirin: No Condition: Stable Instructions: Asthma, Adult Prescriptions: Prednisone [predniSONE 10 mg (6-Day Pack, 21 Tabs)] 10 mg PO .TAPER #1 tab.ds.pk Albuterol Mdi (or & Nicu Only) [ProAir HFA Inhaler] 2 puff IH Q6H PRN #8.5 gram PRN Reason: Shortness Of Breath ALBUTEROL NEB's [Proventil 0.083% NEBS] 2.5 mg IH Q6H PRN #1 box PRN Reason: Shortness Of Breath Referrals: TRE MARTINEZ MD [Staff Physician] - 3-5 Days
== END 2021-02-26 09:19 | disposition home or self-care (01) ==
LOC: ED 07:46
DX: J45.901 Unspecified asthma with (acute) exacerbation (principal); I10 Essential (primary) hypertension; F17.200 Nicotine dependence, unspecified, uncomplicated; Z98.890 Other specified postprocedural states; Z79.899 Other long term (current) drug therapy
CPT/HCPCS: 94640; 99283; J7512

== ENCOUNTER 2022-01-15 09:38 | Emergency (ER) | payer SELFPAY ==
[2022-01-15 10:06] VITALS: BP 129/65
== END 2022-01-15 10:50 | disposition left against medical advice (07) ==
LOC: ED 09:38
DX: R60.0 Localized edema (principal); Z53.21 Procedure and treatment not carried out due to patient leaving prior to being seen by health care provider